=== PATIENT | female | born 1960 | race Caucasian/White ===

== ENCOUNTER → 2016-09-28 | Outpatient (CLI) | payer BC, OTHER ==
--- NOTE | 2016-09-30 09:59 | USB ---
Reason for exam: follow-up at short interval from prior study. History: Patient is postmenopausal. Family history of breast cancer in cousin at age 46. Reductions of both breasts, 2004. Benign core biopsy of the right breast, 2004. Benign excisional biopsy of the right breast, 2002. Physical Findings: Nurse did not find any significant physical abnormalities on exam. US Breast RT Right breast ultrasound includes all four quadrants, the retroareolar region and axilla. Finding demonstrates a 2 x 2 x 3mm oval lesion too small to characterize at 5 o'clock, 3 cm from nipple. This may correspond to the tiny 3mm circumscribed nodule seen on prior mammogram near 4 o'clock. Diagnostic mammogram recommended. These results were verbally communicated with the patient and result sheet given to the patient on 09/28/16. ASSESSMENT: Incomplete: need additional imaging evaluation, BI-RAD 0 RECOMMENDATION: Follow-up diagnostic mammogram of the right breast.
--- NOTE | 2016-09-30 10:01 | MM ---
Reason for exam: additional evaluation requested from abnormal screening. Last mammogram was performed 8 months ago. History: Patient is postmenopausal. Family history of breast cancer in cousin at age 46. Reductions of both breasts, 2004. Benign core biopsy of the right breast, 2003. Benign excisional biopsy of the right breast, 2002. MG 3D Diag Mammo W/Cad RT CC and MLO view(s) were taken of the right breast. Prior study comparison: January 23, 2016, bilateral MG 3d diag mammo w/cad ANNDA. January 23, 2016, left breast US breast LT. June 29, 2012, CAD bilateral diagnostic mammogram. There are scattered fibroglandular densities. Tiny 3mm nodule at 4 o'clock is unchanged from 01/23/16 and may correspond to the ultrasound finding. Stability for 6 months suggests a benign etiology. Additional 6 month follow up recommended. These results were verbally communicated with the patient and result sheet given to the patient on 09/28/16. ASSESSMENT: Probably benign, BI-RAD 3 RECOMMENDATION: Follow-up diagnostic mammogram of both breasts in 6 months. (annual exam left, total 1 year follow up for the right breast) MISSY
== END | disposition home or self-care (01) ==
LOC: RADUSWWP 09:40
PROVIDERS: ATTEND Surgery
DX: R92.8 Other abnormal and inconclusive findings on diagnostic imaging of breast (principal)
CPT/HCPCS: 76641; G0206; G0279

== ENCOUNTER 2017-03-31 07:30 | Inpatient (IN) | payer BC, OTHER ==
[2017-03-31] MEDS: LACTATED RINGERS 1,000 ML IV SCH (07:58)
[2017-03-31 08:18] LABS: Glucose,Whole Blood 157 mg/dL (75-99)
[2017-03-31] MEDS ORDERED: LIDOCAINE 1% INJ 10MG/ML (20 ML MDV) ONE ×2 (09:20→11:55)
[2017-03-31] MEDS ORDERED: PROPOFOL 10 MG/ML 20 ML VIAL IV ONE ×2 (09:20→11:55)
--- NOTE | 2017-03-31 09:37 | P.GSHP ---
History of Present Illness H&P Date: 03/31/17 CHIEF COMPLAINT: Colon screen HISTORY OF PRESENT ILLNESS: The patient is a 56-year-old female who presents for colon screen. Lower endoscopy was offered for further evaluation and management. PAST MEDICAL HISTORY: Please see list. PAST SURGICAL HISTORY: Please see list. MEDICATIONS: Please see list. ALLERGIES: Please see list. SOCIAL HISTORY: No illicit drug use FAMILY HISTORY: No reports of Crohn disease or ulcerative colitis. REVIEW OF ORGAN SYSTEMS: CONSTITUTIONAL: No reports of fevers or chills. PHYSICAL EXAM: VITAL SIGNS: Stable GENERAL: Well-developed pleasant in no acute distress. HEENT: No scleral icterus. Extraocular movements grossly intact. Moist buccal mucosa. NECK: Supple without lymphadenopathy. CHEST: Unlabored respirations. Equal bilateral excursions. CARDIOVASCULAR: Regular rate and rhythm. Distal 2+ pulses. ABDOMEN: Soft, nontender, nondistended. MUSCULOSKELETAL: No clubbing, cyanosis, or edema. ASSESSMENT: 1. Colon screen. PLAN: 1. Recommend proceeding with a lower endoscopy Past Medical History Past Medical History: Diabetes Mellitus, Hyperlipidemia Additional Past Medical History / Comment(s): hx ulcer, has new prescription for oral med for diabetes, History of Any Multi-Drug Resistant Organisms: None Reported Past Surgical History: Bladder Surgery, Breast Surgery, Ear Surgery, Hysterectomy, Tonsillectomy Additional Past Surgical History / Comment(s): rt ear reconstruction, azam breast reduction , rt ankle bone biopsy Past Anesthesia/Blood Transfusion Reactions: No Reported Reaction Smoking Status: Former smoker - Past Family History Father Family Medical History: Cancer, Deep Vein Thrombosis (DVT) Medications and Allergies Home Medications Medication Instructions Recorded Confirmed Type Atorvastatin Calcium [Lipitor] 10 mg PO HS 03/25/17 03/31/17 History Fluticasone Nasal Davis [Flonase 2 spr EA NOSTRIL DAILY 03/25/17 03/31/17 History Nasal Davis] Ibuprofen 200 - 400 mg PO DAILY PRN 03/25/17 03/31/17 History Allergies Allergy/AdvReac Type Severity Reaction Status Date / Time Penicillins Allergy Rash/Hives Verified 03/25/17 11:41 Surgical - Exam Vital Signs Temp Pulse Resp BP Pulse Ox 97.8 F 76 20 117/78 95 03/31/17 07:49 03/31/17 07:49 03/31/17 07:49 03/31/17 07:49 03/31/17 07:49 Results - Labs Abnormal Lab Results - Last 24 Hours (Table) 03/31/17 Range/Units 07:54 POC Glucose (mg/dL) 157 H (75-99) mg/dL
--- NOTE | 2017-03-31 09:42 | P.PCN ---
Date of Procedure: 03/31/17 Description of Procedure: PREOPERATIVE DIAGNOSIS: Colonoscopy screening. Family history of colon cancer. POSTOPERATIVE DIAGNOSIS: Colonoscopy screening. Diverticulosis, scattered. Family history of colon cancer. Colonic perforation, sigmoid colon. OPERATION: Colonoscopy to the sigmoid colon. SURGEON: Ashley Cohn MD. ANESTHESIA: MAC. INDICATIONS: The patient is a 56-year-old female who presents for colonoscopy screening. Benefits and risks were described and informed consent was obtained. DESCRIPTION OF PROCEDURE: The patient had undergone Gatorade, MiraLAX and Dulcolax prep. She had been brought into the operating room and laid in the left lateral decubitus position. After adequate intravenous sedation, the rectum was examined with 2% lidocaine jelly. No external hemorrhoids were encountered. The rectal tone was within normal limits. No lesions were palpated in the rectal vault. An Olympus colonoscope was advanced to a tortuous sigmoid colon. Upon advancement, the small bowel contents was identified consistent intra-abdominal view hence a colonic perforation of a diverticulum at 30 cm from the anal verge. The colonoscope was removed. Withdrawal time was over 6 minutes. FINDINGS: Severe sigmoid diverticulosis. Colonic perforation at 30 cm from the anal verge. RECOMMENDATIONS: Immediate admission for colonic perforation
[2017-03-31] MEDS ORDERED: ONDANSETRON 4 MG/2 ML VIAL IVP PRN (09:43)
[2017-03-31] MEDS ORDERED: METOCLOPRAMIDE 5 MG/ML 2 ML VIAL IVP PRN (09:43)
[2017-03-31] MEDS ORDERED: NALOXONE 0.4 MG/ML 1 ML VIAL IV PRN (09:43)
--- NOTE | 2017-03-31 09:43 | P.PN ---
Progress Note - Text Progress Note Date: 03/31/17 Findings of colonoscopy demonstrates colonic perforation at 30 cm from the anal verge. Patient will be admitted for laparoscopy/laparotomy.
[2017-03-31 09:52] LABS: Glucose,Whole Blood 160 mg/dL (75-99)
[2017-03-31] MEDS: MORPHINE SULFATE 10 MG/ML SYRINGE IVP ONE ×2 (10:23→10:28)
[2017-03-31] MEDS ORDERED: LACTATED RINGERS 1,000 ML IV ONE ×3 (10:28→15:51)
[2017-03-31] MEDS ORDERED: metroNIDAZOLE 500 MG TAB PO SCH ×2 (10:30→18:00)
[2017-03-31] MEDS ORDERED: LEVOFLOXACIN 500MG-D5W PMX 500 MG in DEXTROSE/WATER 1 100ML.BAG IVPB SCH (11:00)
[2017-03-31] MEDS ORDERED: ACETAMINOPHEN IV (For NPO) 1,000 MG in EMPTY BAG 1 BAG IVPB ONE (11:00)
[2017-03-31] MEDS ORDERED: IV FLUID CONTINUATION 1,000 ML IV ONE ×2 (11:09→11:33)
[2017-03-31] MEDS ORDERED: metroNIDAZOLE-NS PMX 500 MG in SALINE 1 100ML.BAG IVPB STA (11:19)
[2017-03-31] MEDS ORDERED: VECURONIUM 10 MG VIAL IV ONE (11:55)
[2017-03-31] MEDS ORDERED: NEOSTIGMINE 1 MG/ML 10 ML VIAL ONE (11:55)
[2017-03-31] MEDS ORDERED: SUCCINYLCHOLINE CHLORIDE 100 MG/5 ML SYR IV ONE (11:55)
[2017-03-31] MEDS ORDERED: fentaNYL (PF) 50 MCG/ML 2 ML AMP ONE (11:55)
[2017-03-31] MEDS ORDERED: GLYCOPYRROLATE 0.2 MG/ML 2 ML VIAL ONE (11:55)
[2017-03-31] MEDS ORDERED: HYDROmorphone (PF) 1 MG/ML ONE (11:55)
[2017-03-31] MEDS ORDERED: MIDAZOLAM 2 MG/2 ML VIAL ONE (11:55)
[2017-03-31] MEDS ORDERED: BUPIVACAINE-EPI 0.5%-1:200,000 10 ML VIAL SQ ONE (12:37)
[2017-03-31] MEDS ORDERED: HYDROmorphone 1 MG/ML 1 ML SYRINGE IVP ONE ×4 (13:45→16:56)
--- NOTE | 2017-03-31 13:49 | P.PCN ---
Date of Procedure: 03/31/17 Preoperative Diagnosis: Diverticulosis, history of perforated diverticulitis following colonoscopy Postoperative Diagnosis: Same Procedure(s) Performed: Diagnostic laparoscopy, oversew of colotomy at 30 cm from anal verge, peritoneal lavage 4 L normal saline, placement of #19 Gavin-Welch drain left lower abdomen, intraoperative colonoscopy for sigmoidoscopy Anesthesia: GETA, local Surgeon: Ashley Cohn Estimated Blood Loss (ml): 5 Pathology: other (Aerobic and anaerobic culture peritoneal fluid) Condition: stable Disposition: floor Operative Findings: Perforated diverticulosis identified and oversewn using epiploica. Area of perforation confirmed at 30 cm from anal verge. Intraoperative colonoscopy for sigmoidoscopy performed demonstrating negative leak test. Placement of drain along the left lower quadrant lateral to area perforation
[2017-03-31] MEDS ORDERED: MEPERIDINE 50 MG/ML SYRINGE IVP ONE (14:10)
[2017-03-31] MEDS ORDERED: ACETAMINOPHEN IV (For NPO) 1,000 MG/100 ML VIAL IVPB ONE (15:13)
[2017-03-31 15:26] LABS: Glucose,Whole Blood 169 mg/dL (75-99)
[2017-03-31 17:44] LABS: HCT 44.7 % (34.0-46.0); HGB 14.9 gm/dL (11.4-16.0); MCH 29.8 pg (25.0-35.0); MCHC 33.4 g/dL (31.0-37.0); MCV 89.3 fL (80.0-100.0); Mean Platelet Volume 7.3; Platelet Count 221 k/uL (150-450); RDW 12.5 % (11.5-15.5); WBC 15.4 k/uL (3.8-10.6)
[2017-03-31] MEDS: D5-0.45% NACL WITH KCL 20MEQ/L 1,000 ML IV SCH (17:49)
[2017-03-31 17:52] LABS: ALT 47 U/L (9-52); AST 28 U/L (14-36); Albumin 3.2 g/dL (3.5-5.0); Alkaline Phosphatase 89 U/L (38-126); Anion Gap 11 mmol/L; Blood Urea Nitrogen 9 mg/dL (7-17); Calcium 8.6 mg/dL (8.4-10.2); Carbon Dioxide 24 mmol/L (22-30); Chloride 103 mmol/L (98-107); Glucose 157 mg/dL (74-99); Potassium 3.5 mmol/L (3.5-5.1); Sodium 138 mmol/L (137-145); Total Bilirubin 1.8 mg/dL (0.2-1.3); Total Protein 5.8 g/dL (6.3-8.2)
[2017-03-31] MEDS ORDERED: SODIUM CHLORIDE 0.9% 1,000 ML IV ONE (19:16)
[2017-03-31 19:43] LABS: Band Neutrophils % 34 %; Lymphocytes # (M) 0.46 k/uL (1.0-4.8); Monocytes # (M) 0.46 k/uL (0-1.0); Neutrophils % (M) 61 %; Nucleated Red Blood Cells 0 /100 WBC (0-0); Total Cells Counted 200
[2017-03-31] MEDS: HYDROmorphone 4 MG/ML 1 ML SYRINGE IVP PRN (19:58)
--- NOTE | 2017-03-31 20:00 | P.OP ---
Date of Procedure: 03/31/17 Description of Procedure: Preoperative Diagnosis: 1. Diverticulosis with previous history of diverticulitis. 2. History of perforated diverticulitis following colonoscopy 3. Family history of colon cancer. 4. Hyperlipidemia. Postoperative Diagnosis: 1. Diverticulosis with previous history of diverticulitis. 2. History of perforated diverticulitis following colonoscopy 3. Family history of colon cancer. 4. Hyperlipidemia. Procedure(s) Performed: 1. Diagnostic laparoscopy, lysis of adhesions 2. Oversew of colotomy at 30 cm from anal verge 3. Peritoneal lavage 4 L normal saline 4. Placement of round #19 Gavin-Welch drain left lower abdomen 5. Intraoperative colonoscopy for sigmoidoscopy Anesthesia: MILADA, local Surgeon: Ashley Cohn Estimated Blood Loss (ml): 5 Pathology: other (Aerobic and anaerobic culture peritoneal fluid) Condition: stable Disposition: floor Operative Findings: 1. Perforated diverticulosis identified and oversewn using epiploica. 2. Area of perforation confirmed at 30 cm from anal verge. 3. Intraoperative colonoscopy for sigmoidoscopy performed demonstrating negative leak test. 4. Placement of drain along the left lower quadrant lateral to area perforation 5. No contamination was identified along the pelvis. 6. Severe sigmoid diverticulosis with moderate redundant colon was identified. INDICATIONS: The patient is a 56-year-old female who presents with perforated diverticulosis following colonoscopy. The patient was completely adamant to avoid a colostomy bag. Surgical intervention with a diagnostic laparoscopy with possible laparotomy including colostomy were described. Benefits and risks of the procedures were discussed. Informed consent was obtained. DESCRIPTION: Patient was brought to the operating room, laid in modified lithotomy position. After general induction, the abdomen was prepped and draped in standard sterile fashion. Prior to incision, a timeout protocol was confirmed with surgical team regarding patient's name including procedure to be performed. Preoperative medications including antibiotics were given. Additionally, bilateral SCDs were placed. A 5 mm laparoscopic trocar entry performed of the left upper quadrant after anesthetizing the skin with local anesthetic. Diagnostic laparoscopy demonstrated no contamination along the lower pelvis. Multiple sigmoid diverticula were encountered. The small bowel was unremarkable. Additional 2 - 5 mm trochars were placed along the right lateral abdominal wall. Bowel graspers were used to investigate the sigmoid colon. Lysis of adhesions was performed to clearly identify the defect. The sigmoid perforation was found at 30 cm from the anal verge. Along the right lateral lower abdominal wall, the 5-mm trochar was exchanged for a 12-mm port. Using an Endo Stitch and 2-0 silk, the colonic perforation was oversewn using the epiploica as a Jeff patch to the left lateral abdominal wall. Severe diverticulitis was also encountered as it involved the left fallopian tube. The repair was emergent and normal saline solution. An Olympus colonoscope was advanced to the sigmoid colon. Multiple [place] diverticuli were identified . With a combined view of the laparoscope, moderate sigmoid redundancy was identified. No leak was identified upon insufflation of the sigmoid colon. The scope was withdrawn. I re-scrubbed into the case. Abdominal cavity was copiously irrigated with warm saline solution 4 L. the aspirant of peritoneal fluid was sent for aerobic and anaerobic culture. Gavin-Welch drain was placed along the left lower quadrant at the area of repair. Drain stitch of 2-0 nylon was placed. As the drain exited via the right lower quadrant port. At least 3-1/2 L of irrigation fluid was aspirated from the abdominal cavity. Final inspection of the abdomen demonstrated adequate hemostasis including no enterotomies. All instruments and pneumoperitoneum were evacuated from the abdominal cavity. Local anesthetic was infiltrated in all wounds for postop analgesia. Dermabond was applied to the skin after reapproximating the incisions with 4-0 Monocryl as described. At the end of the procedure, needle, sponge, and instrument count was verified correct by surgical aide. The patient had tolerated the procedure well, was taken to the postanesthesia care unit in stable condition. Intraoperative abdominal films were described and discussed with the patient's family who were overall pleased with the level of care. Postprocedure, the patient reported that her abdominal pain has moderately improved following surgery. All questions including surgical care plan was described to the patient and her family.
--- NOTE | 2017-03-31 20:04 | P.PN ---
Subjective Progress Note Date: 03/31/17 The patient is status post diagnostic laparoscopy with abdominal washout and placement of FREIDA drain. She reports her abdominal pain has moderately improved. Her and her mother is at bedside. On further discussion, her mother and confirms that she's had long-standing lower abdominal pain secondary to diverticulitis. Diverticulitis also runs in her family. CT of the abdomen and pelvis images as referred from 2016 showed severe tortuosity of the sigmoid colon secondary to severe diverticulitis. Clinically, patient reports improvement of her symptoms. Objective - Vital Signs Vital signs: Vital Signs Temp 99.0 F 03/31/17 16:15 Pulse 112 H 03/31/17 16:30 Resp 16 03/31/17 16:30 BP 108/61 03/31/17 16:30 Pulse Ox 98 03/31/17 16:30 Intake & Output 03/31/17 03/31/17 04/01/17 06:59 18:59 06:59 Intake Total 3500 Output Total 202 Balance 3298 Weight 72.5 kg Intake: IV 3500 Output: Urine 200 Estimated Blood Loss 2 - Exam GENERAL: Well developed and in no acute distress. Pleasant. HEENT: No sclera icterus. Extraocular movements grossly intact. Moist buccal mucosa. Head is atraumatic, normocephalic. Hears conversational speech. No nasal drainage. NECK: Supple without lymphadenopathy. No JV distention. CHEST: Non-labored respirations and equal bilateral excursions. CARDIOVASCULAR: Tachycardic. Palpable 2+ radial pulses. ABDOMEN: Soft. No peritonitis. FREIDA serosanguineous. Minimal left lower quadrant tenderness. MUSCULOSKELETAL: No clubbing, cyanosis or edema. NEUROLOGIC: No focal or lateralizing signs. PSYCH: Appropriate affect. Alert and oriented to person, place and time. SKIN: Good skin turgor. Well perfused. - Labs CBC & Chem 7: 03/31/17 17:24 03/31/17 17:24 Labs: Abnormal Lab Results - Last 24 Hours (Table) 03/31/17 03/31/17 03/31/17 Range/Units 07:54 09:50 15:21 WBC (3.8-10.6) k/uL Neutrophils # (Manual) (1.3-7.7) k/uL Lymphocytes # (Manual) (1.0-4.8) k/uL Glucose (74-99) mg/dL POC Glucose (mg/dL) 157 H 160 H 169 H (75-99) mg/dL Plasma Lactic Acid Celio (0.7-2.0) mmol/L Total Bilirubin (0.2-1.3) mg/dL Total Protein (6.3-8.2) g/dL Albumin (3.5-5.0) g/dL 03/31/17 03/31/17 03/31/17 Range/Units 17:24 17:24 17:24 WBC 15.4 H (3.8-10.6) k/uL Neutrophils # (Manual) 14.60 H (1.3-7.7) k/uL Lymphocytes # (Manual) 0.46 L (1.0-4.8) k/uL Glucose 157 H (74-99) mg/dL POC Glucose (mg/dL) (75-99) mg/dL Plasma Lactic Acid Celio 3.5 H* (0.7-2.0) mmol/L Total Bilirubin 1.8 H (0.2-1.3) mg/dL Total Protein 5.8 L (6.3-8.2) g/dL Albumin 3.2 L (3.5-5.0) g/dL Assessment and Plan (1) Diverticulosis Current Visit: Yes Status: Acute Code(s): K57.90 - DVRTCLOS OF INTEST, PART UNSP, W/O PERF OR ABSCESS W/O BLEED SNOMED Code(s): 60584082 (2) Perforation of sigmoid colon Current Visit: Yes Status: Acute Code(s): K63.1 - PERFORATION OF INTESTINE ( NONTRAUMATIC) SNOMED Code(s): 040531387 Plan: 1. Continue IV antibiotics including levofloxacin and Flagyl as described. She 'll be discharged home with levofloxacin and Flagyl. 2. May have ice chips and popsicles. No advancement of diet for at least 24 hours. 3. For her tachycardia, IV fluid hydration. Additionally start of metoprolol. 4. She and family understands that should her clinical course worsen, then she will need a formal exploratory laparotomy and possible colostomy. 5. She will be discharged home with Gavin-Welch drain to be removed in the office in one week. 6. Full inpatient hospitalization anticipated more than 2 nights. Time with Patient: Greater than 30
[2017-03-31] MEDS ORDERED: FAMOTIDINE 20 MG TAB PO SCH (21:00)
[2017-03-31] MEDS: MAGNESIUM SULFATE-D5W PMX 1 GM in DEXTROSE/WATER 1 100ML.BAG IVPB SCH (21:54)
[2017-03-31] MEDS: ATORVASTATIN 10 MG TAB PO SCH (22:46)
[2017-03-31] MEDS: metroNIDAZOLE 500 MG TAB PO SCH (22:46)
[2017-03-31] MEDS: METOPROLOL TARTRATE 25 MG TAB PO SCH (22:47)
[2017-04-01] MEDS: HYDROmorphone 4 MG/ML 1 ML SYRINGE IVP PRN ×2 (02:29→09:07)
[2017-04-01] MEDS: MAGNESIUM SULFATE-D5W PMX 1 GM in DEXTROSE/WATER 1 100ML.BAG IVPB SCH (02:33)
[2017-04-01] MEDS: D5-0.45% NACL WITH KCL 20MEQ/L 1,000 ML IV SCH ×5 (06:19→22:18)
[2017-04-01 07:15] LABS: Basophils % (A) 0 %; Eosinophils % (A) 0 %; HCT 42.1 % (34.0-46.0); HGB 13.8 gm/dL (11.4-16.0); Lymphocytes # (A) 1.3 k/uL (1.0-4.8); Lymphocytes % (A) 6 %; MCH 29.6 pg (25.0-35.0); MCHC 32.7 g/dL (31.0-37.0); MCV 90.5 fL (80.0-100.0); Mean Platelet Volume 7.4; Monocytes # (A) 0.5 k/uL (0-1.0); Monocytes % (A) 3 %; Neutrophils # (A) 19.1 k/uL (1.3-7.7); Neutrophils % (A) 90 %; Platelet Count 230 k/uL (150-450); RBC 4.65 m/uL (3.80-5.40); RDW 12.7 % (11.5-15.5); WBC 21.2 k/uL (3.8-10.6)
[2017-04-01 07:24] LABS: ALT 41 U/L (9-52); AST 24 U/L (14-36); Albumin 3.1 g/dL (3.5-5.0); Alkaline Phosphatase 86 U/L (38-126); Anion Gap 8 mmol/L; Blood Urea Nitrogen 7 mg/dL (7-17); Calcium 8.8 mg/dL (8.4-10.2); Carbon Dioxide 27 mmol/L (22-30); Chloride 102 mmol/L (98-107); Glucose 162 mg/dL (74-99); Magnesium 2.1 mg/dL (1.6-2.3); Phosphorus 3.2 mg/dL (2.5-4.5); Potassium 4.6 mmol/L (3.5-5.1); Sodium 137 mmol/L (137-145); Total Bilirubin 1.5 mg/dL (0.2-1.3); Total Protein 5.6 g/dL (6.3-8.2)
[2017-04-01] MEDS: LACTATED RINGERS 1,000 ML IV SCH (08:52)
[2017-04-01] MEDS: METOPROLOL TARTRATE 25 MG TAB PO SCH ×2 (09:06→22:25)
[2017-04-01] MEDS: metroNIDAZOLE 500 MG TAB PO SCH ×3 (09:06→22:25)
[2017-04-01] MEDS: PANTOPRAZOLE 40 MG/10 ML VIAL IV SCH (09:06)
[2017-04-01] MEDS: ENOXAPARIN 30 MG/0.3 ML SYRINGE SQ SCH (09:06)
[2017-04-01] MEDS: FLUTICASONE 50MCG/SPRAY NASAL 16GM EA NOSTRIL SCH (09:08)
--- NOTE | 2017-04-01 10:59 | CDI ---
Last Revision, February 2017 Documentation Clarification Form Date: 04/01/2017 10:18:00 AM From: Daniela Rocha RN, CCDS Admit Date: 03/31/2017 9:44:00 AM Patient Name: Paulette Myrick Visit Number: [id number] Discharge Date: ATTENTION: The Clinical Documentation Specialists (CDI) and [facility] Coding Staff appreciate your assistance in clarifying documentation. Please respond to the clarification below the line at the bottom and electronically sign. The CDI & [facility] Coding staff will review the response and follow-up if needed. Please note: Queries are made part of the Legal Health Record. If you have any questions, please contact the author of this message via ITS. Dr. Ashley Cohn Perforation of sigmoid colon following colonoscopy is documented in the procedure and progress notes. Patients Admitting Diagnosis: History of perforated diverticulitis following colonoscopy Post-Operative Diagnosis: Same Procedure performed: Diagnostic laparoscopy, lysis of adhesions, oversew of colostomy at 30 cm from anal verge, peritoneal lavage, placement of Gavin- Welch drain left lower abdomen, Intraoperative colonoscopy for sigmoidoscopy History/Risk Factors: Diverticulosis with previous history of diverticulitis, Hyperlipidemia Clinical Indicators: Colonoscopy screening with colonoscope advanced to a tortuous sigmoid colon. Upon advancement the small bowel contents was identified consistent intra-abdominal view hence a colonic perforation of a diverticulum at 30 cm from the anal verge. Treatment: Levaquin IV Dilaudid IVP PRN Flagyl PO IV Fluids In order to accurately reflect this patients severity of illness, please clarify if the post-operative diagnosis is: An expected post-procedural or post-surgical condition; Integral to the procedure; Inherent to the procedure; An unexpected post-procedural or post-surgical condition related to surgical care or other medical conditions, specify; Other, please specify Unable to determine Please continue to document in your progress notes and discharge summary in order to capture severity of illness and risk of mortality. Include clinical findings that support your diagnosis. MTDD
[2017-04-01] MEDS: LEVOFLOXACIN 750MG-D5W PMX 750 MG in DEXTROSE/WATER 1 150ML.BAG IVPB SCH (12:09)
[2017-04-01] MEDS ORDERED: HYDROmorphone 1 MG/ML 1 ML SYRINGE IVP PRN (13:19)
--- NOTE | 2017-04-01 13:33 | P.PN ---
<Berna Clarkemary Lorenzo - Last Filed: 04/01/17 13:16> Subjective Progress Note Date: 04/01/17 56-year-old female seen and examined sitting up in a chair. Patient did ambulate in the hallway short distance this morning Patient reports having a dizziness lightheadedness nausea sensation after receiving iv dilaudid for pain. Patient states is belching but not passing gas rectally. Reports thirsty and hungry Did note the patient did ambulate in the hallway heart monitor showed the heart rate in the 80s with activity. Since starting the beta akhil Lopressor 25 twice a day heart rate has been in the 80s. Patient is asymptomatic. Denying chest pain denying a sensation of heart palpitations Temp 98 0.2 this morning white count is up to 21.2 electrolytes reviewed lab within normal limits patient is postop March 31 diagnostic laparoscopic lysis of adhesions placement left lower quadrant FREIDA drain intraoperative colonoscopy for sigmoidoscopy Objective - Vital Signs Vital signs: Vital Signs Temp 98.2 F 04/01/17 09:27 Pulse 103 H 04/01/17 09:27 Resp 16 04/01/17 09:27 BP 93/51 04/01/17 09:27 Pulse Ox 90 L 04/01/17 09:27 Intake & Output 03/31/17 04/01/17 04/01/17 18:59 06:59 18:59 Intake Total 3500 2300 Output Total 202 640 Balance 3298 1660 Weight 72.5 kg 75.5 kg Intake: IV 3500 Intake, IV Titration 2300 Amount D5-0.45% NaCl with KCl 1100 20Meq/l 1,000 ml @ 100 mls/hr IV .Q10H [facility] Rx#: [id number] Magnesium Sulfate-D5w Pmx 200 1 gm In Dextrose/Water 1 100ml.bag @ 100 mls/hr IVPB Q1H [facility] Rx#: [id number] Sodium Chloride 0.9% 1, 1000 000 ml @ 999 mls/hr IV . Q1H1M [facility] Rx#:[id number] Output: Drainage 40 Right Lower Abdomen 40 Urine 200 600 Estimated Blood Loss 2 Other: # Voids 1 2 - Exam Physical exam 56 year old female sitting up in a chair pleasant cooperative oriented 3 Lungs essentially clear adequate air movement on room air able to use IS achieve thousand Heart S1-S2 audible regular monitor current sinus heart rate in the 80s Abdomen FREIDA drain left lower quadrant serous drainage noted few hypoactive bowel tones surgical dressings dry non-distended belching but not passing gas rectally no stool urinating no difficulty nausea sensation no active emesis Extremities Venodyne's on to the bilateral lower extremities - Labs CBC & Chem 7: 04/01/17 06:39 04/01/17 06:39 Labs: Abnormal Lab Results - Last 24 Hours (Table) 03/31/17 03/31/17 03/31/17 Range/Units 15:21 17:24 17:24 WBC 15.4 H (3.8-10.6) k/uL Neutrophils # (1.3-7.7) k/uL Neutrophils # (Manual) 14.60 H (1.3-7.7) k/uL Lymphocytes # (Manual) 0.46 L (1.0-4.8) k/uL Glucose 157 H (74-99) mg/dL POC Glucose (mg/dL) 169 H (75-99) mg/dL Plasma Lactic Acid Celio (0.7-2.0) mmol/L Total Bilirubin 1.8 H (0.2-1.3) mg/dL Total Protein 5.8 L (6.3-8.2) g/dL Albumin 3.2 L (3.5-5.0) g/dL 03/31/17 03/31/17 04/01/17 Range/Units 17:24 21:10 06:39 WBC 21.2 H (3.8-10.6) k/uL Neutrophils # 19.1 H (1.3-7.7) k/uL Neutrophils # (Manual) (1.3-7.7) k/uL Lymphocytes # (Manual) (1.0-4.8) k/uL Glucose (74-99) mg/dL POC Glucose (mg/dL) (75-99) mg/dL Plasma Lactic Acid Celio 3.5 H* 2.5 H* (0.7-2.0) mmol/L Total Bilirubin (0.2-1.3) mg/dL Total Protein (6.3-8.2) g/dL Albumin (3.5-5.0) g/dL 04/01/17 Range/Units 06:39 WBC (3.8-10.6) k/uL Neutrophils # (1.3-7.7) k/uL Neutrophils # (Manual) (1.3-7.7) k/uL Lymphocytes # (Manual) (1.0-4.8) k/uL Glucose 162 H (74-99) mg/dL POC Glucose (mg/dL) (75-99) mg/dL Plasma Lactic Acid Celio (0.7-2.0) mmol/L Total Bilirubin 1.5 H (0.2-1.3) mg/dL Total Protein 5.6 L (6.3-8.2) g/dL Albumin 3.1 L (3.5-5.0) g/dL Assessment and Plan Assessment: Impression History of diverticulosis History of perforated diverticulitis following colonoscopy Status post March 31 diagnostic laparoscopic be oversew of colotomy, placement FREIDA drain left lower quadrant, interoperative colonoscopy for sigmoidoscopy Family history of colon cancer Hyperlipidemia Severe sigmoid diverticulosis with moderate redundant colon was identified. Postop leukocytosis likely reactive Plan Continue postop surgical care Transfer to surgical unit with remote cardiac telemetry Continue Lopressor 25 twice a day monitor the response Pain control Increase activity DVT and GI prophylaxis Repeat labs in the morning IV fluid for hydration Continue nothing by mouth except ice chips and popsicles Further recommendations pending dr james tena on behalf of Dr. Cohn The above impression and plan of care have been discussed and directed by signing physician. Elinor Clarke nurse practitioner acting as scribe for signing physician. <Ashley Cohn N - Last Filed: 04/02/17 17:58> Objective - Vital Signs Vital signs: Vital Signs Temp 98.0 F 04/02/17 15:23 Pulse 80 04/02/17 15:23 Resp 16 04/02/17 15:23 BP 131/83 04/02/17 15:23 Pulse Ox 95 04/02/17 15:23 Intake & Output 04/01/17 04/02/17 04/02/17 18:59 06:59 18:59 Intake Total 1000 2000 Output Total 50 100 40 Balance -50 900 1960 Weight 75.5 kg 79.5 kg Intake: IV 2000 D5-0.45% NaCl with KCl 2000 20Meq/l 1,000 ml @ 125 mls/hr IV .Q8H [facility] Rx#: [id number] Intake, IV Titration 1000 Amount D5-0.45% NaCl with KCl 1000 20Meq/l 1,000 ml @ 125 mls/hr IV .Q8H [facility] Rx#: [id number] Output: Drainage 50 40 Right Lower Abdomen 50 40 Urine 100 Other: Voiding Method Toilet # Voids 2 3 2 # Bowel Movements 1 - Labs CBC & Chem 7: 04/02/17 06:26 04/02/17 06:26 Labs: Abnormal Lab Results - Last 24 Hours (Table) 04/01/17 04/02/17 04/02/17 Range/Units 23:38 05:44 06:26 WBC 15.3 H (3.8-10.6) k/uL Neutrophils # 13.6 H (1.3-7.7) k/uL Glucose (74-99) mg/dL POC Glucose (mg/dL) 171 H 179 H (75-99) mg/dL 04/02/17 04/02/17 Range/Units 06:26 07:19 WBC (3.8-10.6) k/uL Neutrophils # (1.3-7.7) k/uL Glucose 185 H (74-99) mg/dL POC Glucose (mg/dL) 182 H (75-99) mg/dL Microbiology - Last 24 Hours (Table) 04/01/17 21:10 Urine Culture - Preliminary Urine,Clean Catch - Imaging and Cardiology CT scan - abdomen: report reviewed, image reviewed (Images were reviewed with the patient and her demonstrated fluid collection above the bladder. Separately, sealed perforation along the descending colon confirmed.) CT scan - pelvis: report reviewed, image reviewed Assessment and Plan (1) Diverticulosis Current Visit: Yes Status: Acute Code(s): K57.90 - DVRTCLOS OF INTEST, PART UNSP, W/O PERF OR ABSCESS W/O BLEED SNOMED Code(s): 26825983 (2) Perforation of sigmoid colon Current Visit: Yes Status: Acute Code(s): K63.1 - PERFORATION OF INTESTINE ( NONTRAUMATIC) SNOMED Code(s): 050020055 Plan: 1. At the time of my evaluation this afternoon, the patient is passing moderate amount of flatus and is having bowel movements. I have started her on regular diet. 2. A Franco catheter was placed as her computed tomography scan showed a moderately distended bladder. Will discontinue Franco in the morning. 3. Discharge medications include ciprofloxacin, Flagyl, or hydrocodone was sent to the pharmacy. Patient will be discharged home with antibiotics for one to 2 weeks. 4. Patient will go home with FREIDA drain. She demonstrated understanding of its use. 5. Incentive spirometer use also advised. 6. Potential discharge home pending improvement of white blood cell count and patient able to urinate on her own without Franco catheter. Overall patient demonstrated understanding of the care plan and was agreeable with care.
[2017-04-01] MEDS: METOCLOPRAMIDE 5 MG/ML 2 ML VIAL IVP SCH ×3 (15:01→23:44)
[2017-04-01] MEDS ORDERED: AMPICILLIN-SULBACTAM 3 GM in SODIUM CHLORIDE 0.9% 100 ML IVPB SCH (15:29)
[2017-04-01] MEDS ORDERED: ONDANSETRON 4 MG/2 ML VIAL IVP PRN (15:31)
[2017-04-01] MEDS: SCOPOLAMINE 1.5MG/72HR PATCH TRANSDERM SCH (16:40)
[2017-04-01] MEDS: CLINDAMYCIN 600 MG in DEXTROSE 5% IN WATER 50 ML IVPB SCH ×4 (16:40→23:45)
[2017-04-01 17:10] LABS: Glucose,Whole Blood 215 mg/dL (75-99)
[2017-04-01] MEDS: HYDROcodone/APAP 7.5-325MG 1 EACH TAB PO PRN ×2 (19:33→23:44)
[2017-04-01] MEDS: ATORVASTATIN 10 MG TAB PO SCH (22:25)
[2017-04-01 23:43] LABS: Glucose,Whole Blood 171 mg/dL (75-99)
[2017-04-02] MEDS: HYDROcodone/APAP 7.5-325MG 1 EACH TAB PO PRN ×4 (03:59→19:18)
[2017-04-02] MEDS: LACTATED RINGERS 1,000 ML IV SCH (04:27)
[2017-04-02] MEDS: D5-0.45% NACL WITH KCL 20MEQ/L 1,000 ML IV SCH ×3 (04:27→19:22)
[2017-04-02] MEDS: METOCLOPRAMIDE 5 MG/ML 2 ML VIAL IVP SCH ×4 (05:26→23:09)
[2017-04-02 05:55] LABS: Glucose,Whole Blood 179 mg/dL (75-99)
[2017-04-02 07:07] LABS: Basophils % (A) 0 %; Eosinophils % (A) 0 %; HGB 12.2 gm/dL (11.4-16.0); Lymphocytes # (A) 1.1 k/uL (1.0-4.8); Lymphocytes % (A) 7 %; MCH 29.7 pg (25.0-35.0); MCHC 32.9 g/dL (31.0-37.0); MCV 90.4 fL (80.0-100.0); Mean Platelet Volume 7.3; Monocytes # (A) 0.4 k/uL (0-1.0); Monocytes % (A) 3 %; Neutrophils # (A) 13.6 k/uL (1.3-7.7); Neutrophils % (A) 89 %; Platelet Count 185 k/uL (150-450); RBC 4.09 m/uL (3.80-5.40); RDW 12.7 % (11.5-15.5); WBC 15.3 k/uL (3.8-10.6)
[2017-04-02 07:22] LABS: Anion Gap 8 mmol/L; Blood Urea Nitrogen 8 mg/dL (7-17); Calcium 8.7 mg/dL (8.4-10.2); Carbon Dioxide 23 mmol/L (22-30); Chloride 106 mmol/L (98-107); Glucose 185 mg/dL (74-99); Potassium 4.2 mmol/L (3.5-5.1); Sodium 137 mmol/L (137-145)
[2017-04-02 07:58] LABS: Glucose,Whole Blood 182 mg/dL (75-99)
--- NOTE | 2017-04-02 08:01 | P.PN ---
Subjective Progress Note Date: 04/02/17 The patient is status post diagnostic laparoscopy with abdominal washout and placement of FREIDA drain. She reports moderate resolution of her abdominal pain. Separately she reports increased urinary frequency. She has history of severe diverticulitis. Clinically she is improving. Her pain is controlled. No reports of fevers or chills. She has not passed flatus. She denies abdominal bloat. Objective - Vital Signs Vital signs: Vital Signs Temp 98.2 F 04/02/17 07:18 Pulse 85 04/02/17 07:18 Resp 16 04/02/17 07:18 BP 123/76 04/02/17 07:18 Pulse Ox 97 04/02/17 07:18 Intake & Output 04/01/17 04/02/17 04/02/17 18:59 06:59 18:59 Intake Total 1000 Output Total 50 100 Balance -50 900 Weight 75.5 kg 79.5 kg Intake: Intake, IV Titration 1000 Amount D5-0.45% NaCl with KCl 1000 20Meq/l 1,000 ml @ 125 mls/hr IV .Q8H [facility] Rx#: [id number] Output: Drainage 50 Right Lower Abdomen 50 Urine 100 Other: # Voids 2 3 - Exam GENERAL: Well developed and in no acute distress. Pleasant. HEENT: No sclera icterus. Extraocular movements grossly intact. Moist buccal mucosa. Head is atraumatic, normocephalic. Hears conversational speech. No nasal drainage. NECK: Supple without lymphadenopathy. No JV distention. CHEST: Non-labored respirations and equal bilateral excursions. CARDIOVASCULAR: Tachycardic. Palpable 2+ radial pulses. ABDOMEN: Soft. No peritonitis. FREIDA color more cloudy and sanguinous. MUSCULOSKELETAL: No clubbing, cyanosis or edema. NEUROLOGIC: No focal or lateralizing signs. PSYCH: Appropriate affect. Alert and oriented to person, place and time. SKIN: Good skin turgor. Well perfused. - Labs CBC & Chem 7: 04/02/17 06:26 04/02/17 06:26 Labs: Abnormal Lab Results - Last 24 Hours (Table) 04/01/17 04/01/17 04/02/17 Range/Units 17:07 23:38 05:44 WBC (3.8-10.6) k/uL Neutrophils # (1.3-7.7) k/uL Glucose (74-99) mg/dL POC Glucose (mg/dL) 215 H 171 H 179 H (75-99) mg/dL 04/02/17 04/02/17 04/02/17 Range/Units 06:26 06:26 07:19 WBC 15.3 H (3.8-10.6) k/uL Neutrophils # 13.6 H (1.3-7.7) k/uL Glucose 185 H (74-99) mg/dL POC Glucose (mg/dL) 182 H (75-99) mg/dL Microbiology - Last 24 Hours (Table) 04/01/17 21:10 Urine Culture - Preliminary Urine,Clean Catch Assessment and Plan (1) Diverticulosis Current Visit: Yes Status: Acute Code(s): K57.90 - DVRTCLOS OF INTEST, PART UNSP, W/O PERF OR ABSCESS W/O BLEED SNOMED Code(s): 97130446 (2) Perforation of sigmoid colon Current Visit: Yes Status: Acute Code(s): K63.1 - PERFORATION OF INTESTINE ( NONTRAUMATIC) SNOMED Code(s): 966401703 Plan: 1. I did discuss should conservative management failed, open exploratory laparotomy and colostomy may be performed. 2. Recommend CT of the abdomen and pelvis as her last scan was 2015. 3. Continue IV antibiotics. We'll adjust antibiotics pending growth from peritoneal fluid.
[2017-04-02] MEDS: METOPROLOL TARTRATE 25 MG TAB PO SCH ×2 (08:32→21:32)
[2017-04-02] MEDS: metroNIDAZOLE 500 MG TAB PO SCH (08:32)
[2017-04-02] MEDS: ENOXAPARIN 30 MG/0.3 ML SYRINGE SQ SCH (08:32)
[2017-04-02] MEDS: PANTOPRAZOLE 40 MG/10 ML VIAL IV SCH (08:33)
[2017-04-02] MEDS: CLINDAMYCIN 600 MG in DEXTROSE 5% IN WATER 50 ML IVPB SCH ×8 (08:33→23:09)
[2017-04-02] MEDS ORDERED: HYDROmorphone 2 MG/ML 1 ML SYRINGE IVP PRN (08:49)
[2017-04-02] MEDS: FLUTICASONE 50MCG/SPRAY NASAL 16GM EA NOSTRIL SCH (09:24)
[2017-04-02] MEDS: LEVOFLOXACIN 750MG-D5W PMX 750 MG in DEXTROSE/WATER 1 150ML.BAG IVPB SCH (11:26)
[2017-04-02] MEDS ORDERED: RX INFO: IV CONTRAST WAS GIVEN 1 EACH MISC MISCELLANE PRN (11:44)
--- NOTE | 2017-04-02 14:02 | CT ---
EXAMINATION TYPE: CT abdomen pelvis w con DATE OF EXAM: 04/02/2017 HISTORY: Post OP colon repair. Rule out diverticulitis per order. CT DLP: 1731mGycm Automated Exposure Control for Dose Reduction was Utilized. CONTRAST: CT scan of the abdomen and pelvis is performed without oral but with IV Contrast, patient injected wi th 100 mL of Omnipaque 300. COMPARISON: CT abdomen and pelvis February 03, 2016 FINDINGS: LUNG BASES: There is new wedge-shaped atelectasis and/or consolidation posteriorly in both lung bases . LIVER/GB: There is roughly 1 cm gallstone dependently in gallbladder axial image 31. No gallbladder s urrounding inflammatory changes present. PANCREAS: No significant abnormality is seen. SPLEEN: No significant abnormality is seen. ADRENALS: No significant abnormality is seen. KIDNEYS: There is 4 mm calculus upper pole level left kidney coronal image 62 redemonstrated. Nondepe ndent air in bladder is presumed product of Franco catheterization at time of recent surgery. BOWEL: Stomach is not suspiciously dilated. There is small 1.7 cm diverticulum near junction of secon d and third portion duodenum on coronal image 49. Duodenum is not suspiciously dilated. There are air-fluid levels in slightly prominent fluid-filled small bowel loops throughout the abdome n. Normal-appearing appendix is seen from cecum right lower quadrant. Fluid is noted in nondistended right colon. There is gas slightly prominent transverse colon. There is poorly distended left-sided c olon including at level of splenic flexure. There are diverticula in the sigmoid colon. There is some ill-defined surrounding ill-defined fluid and fat stranding. In the pelvis there is a thin-walled fluid collection with some bubbles of nondepe ndent air suspicious for developing abscess measuring roughly 6.0 x 4.0 cm axial image 75. Craniocaud al dimension is roughly 5 cm coronal image 63. UTERUS/ADNEXA: Uterus is surgically absent or atrophic in appearance. There is unusual hyperdense are a in the region of left ovarian veins left of bladder axial image 69 and 70, suspect some reactive in flammatory change related to diverticulitis in region of remnant left ovary. Some blood product at th is level cannot be excluded. LYMPH NODES: No greater than 1cm abdominal or pelvic lymph nodes are appreciated. OSSEOUS STRUCTURES: Moderate to severe joint space loss in both hips is present. There is facet arthr opathy lower lumbar levels. OTHER: There is subcutaneous air from recent surgery in the anterior abdominal wall. There is right-s ided percutaneous drainage catheter terminating in the left upper to mid abdomen anteriorly. There is mild calcified atherosclerotic change of the right common iliac artery. IMPRESSION: 1. New fairly moderate acute diverticulitis proximal to mid sigmoid colon. There is fairly moderate s ize pelvic thin-walled fluid collection felt to reflect developing abscess. Due to location it is pro bably difficult to access for percutaneous drainage. There is overall nonspecific bowel gas pattern b ut favor postoperative ileus. No significant fluid near tip of drainage catheter. Uncertain what rece nt bowel surgery was?
[2017-04-02] MEDS: metroNIDAZOLE-NS PMX 500 MG in SALINE 1 100ML.BAG IVPB SCH ×2 (16:35→23:57)
[2017-04-02] MEDS: ATORVASTATIN 10 MG TAB PO SCH (21:32)
[2017-04-03] MEDS: LACTATED RINGERS 1,000 ML IV SCH (05:17)
[2017-04-03] MEDS: D5-0.45% NACL WITH KCL 20MEQ/L 1,000 ML IV SCH ×2 (05:17→16:14)
[2017-04-03] MEDS: METOCLOPRAMIDE 5 MG/ML 2 ML VIAL IVP SCH ×3 (05:40→17:48)
[2017-04-03] MEDS: HYDROcodone/APAP 7.5-325MG 1 EACH TAB PO PRN ×4 (05:44→22:14)
[2017-04-03 07:48] LABS: Basophils % (A) 0 %; Eosinophils # (A) 0.1 k/uL (0-0.7); Eosinophils % (A) 1 %; HCT 37.7 % (34.0-46.0); HGB 12.8 gm/dL (11.4-16.0); Lymphocytes # (A) 1.3 k/uL (1.0-4.8); Lymphocytes % (A) 8 %; MCH 30.7 pg (25.0-35.0); MCHC 33.8 g/dL (31.0-37.0); MCV 90.7 fL (80.0-100.0); Mean Platelet Volume 7.6; Monocytes # (A) 0.5 k/uL (0-1.0); Monocytes % (A) 3 %; Neutrophils # (A) 13.6 k/uL (1.3-7.7); Neutrophils % (A) 87 %; Platelet Count 198 k/uL (150-450); RBC 4.15 m/uL (3.80-5.40); RDW 12.7 % (11.5-15.5); WBC 15.7 k/uL (3.8-10.6)
[2017-04-03 08:10] LABS: Anion Gap 9 mmol/L; Blood Urea Nitrogen 8 mg/dL (7-17); Calcium 9.1 mg/dL (8.4-10.2); Carbon Dioxide 24 mmol/L (22-30); Chloride 104 mmol/L (98-107); Glucose 209 mg/dL (74-99); Potassium 4.6 mmol/L (3.5-5.1); Sodium 137 mmol/L (137-145)
[2017-04-03] MEDS: FLUTICASONE 50MCG/SPRAY NASAL 16GM EA NOSTRIL SCH (08:16)
[2017-04-03] MEDS: PANTOPRAZOLE 40 MG/10 ML VIAL IV SCH (08:17)
[2017-04-03] MEDS: METOPROLOL TARTRATE 25 MG TAB PO SCH ×3 (08:17→22:52)
[2017-04-03] MEDS: ENOXAPARIN 40 MG/0.4 ML SYRINGE SQ SCH (08:17)
[2017-04-03] MEDS: CLINDAMYCIN 600 MG in DEXTROSE 5% IN WATER 50 ML IVPB SCH ×2 (08:17)
[2017-04-03] MEDS: metroNIDAZOLE-NS PMX 500 MG in SALINE 1 100ML.BAG IVPB SCH ×2 (10:07→17:54)
--- NOTE | 2017-04-03 11:09 | P.PN ---
Subjective Progress Note Date: 04/03/17 Principal diagnosis: Colonic perforation with colonoscopy The patient feels well. She wants to go home today. She denies a significant pain. Objective - Vital Signs Vital signs: Vital Signs Temp 98.3 F 04/03/17 07:19 Pulse 87 04/03/17 07:19 Resp 16 04/03/17 07:19 BP 133/82 04/03/17 07:19 Pulse Ox 91 L 04/03/17 07:19 Intake & Output 04/02/17 04/03/17 04/03/17 18:59 06:59 18:59 Intake Total 2000 3000 120 Output Total 40 2235 900 Balance 1960 765 -780 Intake: IV 2000 3000 D5-0.45% NaCl with KCl 2000 3000 20Meq/l 1,000 ml @ 125 mls/hr IV .Q8H [facility] Rx#: [id number] Oral 120 Output: Drainage 40 35 Right Lower Abdomen 40 35 Urine 2200 900 Uretheral (Franco) 900 900 Other: Voiding Method Toilet # Voids 2 3 2 # Bowel Movements 1 2 - Constitutional General appearance: Present: cooperative - Gastrointestinal Gastrointestinal Comment(s): Abdomen soft. Incision sites are clean dry intact. - Labs CBC & Chem 7: 04/03/17 07:09 04/03/17 07:09 Labs: Abnormal Lab Results - Last 24 Hours (Table) 04/03/17 04/03/17 Range/Units 07:09 07:09 WBC 15.7 H (3.8-10.6) k/uL Neutrophils # 13.6 H (1.3-7.7) k/uL Glucose 209 H (74-99) mg/dL Microbiology - Last 24 Hours (Table) 04/03/17 05:00 Body Fluid Culture - Preliminary Aspirate 04/01/17 21:10 Urine Culture - Final Urine,Clean Catch Assessment and Plan Assessment: Status post repair of colonic perforation after colonoscopy. The patient wished to go home. A computed tomography scan of the abdomen pelvis was ordered yesterday. She is found have a small fluid collection in the pelvis. It is unclear this related to seroma or developing abscess. Patient clinically looks well. Dr. Lake has been consult to see her. If she is cleared by Dr. Ruiz she will be discharged home today. She will follow-up Dr. Omalley next week.
[2017-04-03] MEDS: LEVOFLOXACIN 750MG-D5W PMX 750 MG in DEXTROSE/WATER 1 150ML.BAG IVPB SCH (12:35)
[2017-04-03] MEDS: cefTRIAXone IN SWFI 2,000 MG/20 ML SYRINGE IVP SCH (16:36)
[2017-04-03] MEDS ORDERED: MENTHOL (NICE) LOZENGE MUCOUS MEM PRN (19:23)
[2017-04-03] MEDS: ATORVASTATIN 10 MG TAB PO SCH (22:13)
[2017-04-04] MEDS: metroNIDAZOLE-NS PMX 500 MG in SALINE 1 100ML.BAG IVPB SCH ×3 (00:41→17:05)
[2017-04-04] MEDS: METOCLOPRAMIDE 5 MG/ML 2 ML VIAL IVP SCH ×4 (00:41→18:32)
[2017-04-04] MEDS: HYDROcodone/APAP 7.5-325MG 1 EACH TAB PO PRN ×4 (04:57→22:38)
[2017-04-04] MEDS: D5-0.45% NACL WITH KCL 20MEQ/L 1,000 ML IV SCH ×3 (05:23→13:04)
[2017-04-04] MEDS: LACTATED RINGERS 1,000 ML IV SCH (10:02)
[2017-04-04] MEDS: PANTOPRAZOLE 40 MG/10 ML VIAL IV SCH (10:07)
[2017-04-04] MEDS: METOPROLOL TARTRATE 25 MG TAB PO SCH ×2 (10:07→22:36)
[2017-04-04] MEDS: FLUTICASONE 50MCG/SPRAY NASAL 16GM EA NOSTRIL SCH (10:07)
[2017-04-04] MEDS: ENOXAPARIN 40 MG/0.4 ML SYRINGE SQ SCH (10:08)
--- NOTE | 2017-04-04 10:39 | CONS ---
CONSULTATION DATE OF SERVICE: 04/03/2017. REASON FOR CONSULTATION: Abdominal abscess. HISTORY OF PRESENT ILLNESS: The patient is a 56-year-old female who did have a screening colonoscopy for history of colon cancer. The patient was noticed to have significant tortuosity of the colon with recent perforation. Subsequently the patient has been taken to the OR that afternoon where the patient did have laparoscopy with lysis of adhesions and repair of the perforation at 30 cm from the anal verge, and placement of the FREIDA drain. Unfortunately no OR culture were done. Subsequent the patient has been admitted to the hospital. She has been treated with broad-spectrum antibiotic in form of clindamycin, Levaquin and Flagyl because of her PENICILLIN ALLERGY. The patient did have a CT of the abdomen and pelvis done yesterday which did show new fairly moderate acute diverticulitis to the mid sigmoid colon, moderate size pelvic thin wall fluid collection with developing abscesses 6 x 4 cm. ID was consulted this morning for further recommendation regarding antibiotic therapy. The patient has been afebrile during this hospital stay, highest temperature has been 99.3. The patient did have elevated white count of 15.4 on admission and has stayed around 15.7 as of today. Clinically, the patient did mention the abdominal pain which is in the lower abdominal area for the last 3 days more of a dull aching intensity about 45-10 and no radiation , seemed to have been improving with the pain medication she is receiving. She still had significant output in her FREIDA drain. Cultures were obtained from the drain this morning. The patient denies having any fevers or rigors. Denies having any headache. No chest pain. No shortness of breath or cough. Did have a bowel movement x2, which are forming up. No blood or mucus in the stools. REVIEW OF SYSTEMS: Constitutional positive for weakness. Denies any high-grade fever. Eyes no complaint. ENT no complaint. Respiratory no complaint. Cardiovascular no complaint. Genitourinary no complaint. Gastrointestinal no complaint. Musculoskeletal no complaint. Psychological no complaint. Endocrine no complaint. Neurologic no complaint. PAST MEDICAL HISTORY: Significant for hyperlipidemia and diabetes mellitus. PAST SURGICAL HISTORY: Bladder surgery, back surgery, hysterectomy, tonsillectomy, right ear reconstruction, right ankle biopsy. SOCIAL HISTORY: Remote history of smoking. No drinking or drug use. FAMILY HISTORY: Father history of cancer and DVT. ALLERGIES: PENICILLIN with a rash. No history of anaphylaxis. Allergy to METFORMIN. MEDICATIONS: Include the patient is currently on: 1. [place]. 2. Lipitor. 3. Lovenox. 4. Flonase. 5. Dilaudid. 6. Levofloxacin. 7. Lopressor. 8. Flagyl. 9. Narcan. 10.Zofran. 11.Protonix. 12.Clindamycin. EXAMINATION: Blood pressure is 134/85 with a pulse of 85, temperature of 98.9, she is 94% on room air. GENERAL DESCRIPTION: A middle-aged female up in the chair in no distress. No tachypnea or accessory muscle of respiration use. HEENT: Shows no pallor or scleral icterus. Oral mucosa is dry. No pharyngeal erythema or thrush NECK: Trachea central. No thyromegaly. LUNGS: Unlabored breathing. Clear to auscultation anteriorly. No wheeze or crackle. HEART: S1, S2. Regular rate and rhythm. No murmur ABDOMEN: Soft, no tenderness. No guarding. No rigidity. FREIDA drain with serosanguineous secretion. EXTREMITIES: No edema of the feet. SKIN: No rash or mass palpable. NEUROLOGIC: The patient is awake, alert, oriented x3. Mood and affect normal. LABS: Hemoglobin is 12, white count 15.7, BUN of 8, creatinine 0.61. Urine culture has been negative. No blood cultures. She did have a body fluid culture obtained from the drain this morning, which is currently pending. CT report as mentioned above. DIAGNOSTIC IMPRESSION AND PLAN: 1. Patient with acute sigmoid diverticulitis with recent colon perforation, status post laparoscopic repair of the perforation. Unfortunately no OR cultures were done at that time, with a CT now showing a 6 x 4 cm developing abscess, likely organism That need to record will be enteric gram-negative mostly aerobes and anaerobes and less likely gram- positive jesus. 2. Patient has a penicillin allergy, limits number of antibiotics that we can safely use. PLAN: 1. the patient will be treated with broad-spectrum antibiotic in the form of Levaquin, Flagyl and Rocephin 2 g daily and discontinue the clindamycin as clinically less likely a gram-positive infection and his risk of C. diff colitis. 2. Aggressive IV fluid 3-closed monitoring of her cultures and white count 4-We will follow up on clinical condition as well as well as cultures obtained this morning to determine discharge antibiotics. Thank you for this consultation. Will follow this patient along with you. MMODL / IJN: [id number] / MISSY
--- NOTE | 2017-04-04 11:29 | P.PN ---
Subjective Progress Note Date: 04/04/17 Principal diagnosis: Colonic perforation The patient was kept in the hospital yesterday. She had evidence of leukocytosis with a white count of 15,000. On CAT scan she is also to have a fluid collection pelvis. Patient states she feels fairly well. And has minimal abdominal pain. Objective - Vital Signs Vital signs: Vital Signs Temp 98.3 F 04/04/17 08:00 Pulse 82 04/04/17 08:00 Resp 16 04/04/17 08:00 BP 118/66 04/04/17 08:00 Pulse Ox 96 04/04/17 08:00 Intake & Output 04/03/17 04/04/17 04/04/17 18:59 06:59 18:59 Intake Total 1240 1580 360 Output Total 1150 680 Balance 90 900 360 Intake: IV 1000 1000 D5-0.45% NaCl with KCl 1000 1000 20Meq/l 1,000 ml @ 125 mls/hr IV .Q8H [facility] Rx#: [id number] Intake, IV Titration 100 Amount metroNIDAZOLE-NS PMX 500 100 mg In Saline 1 100ml.bag @ 100 mls/hr IVPB Q8HR [facility] Rx#:[id number] Oral 240 480 360 Output: Drainage 30 Right Lower Abdomen 30 Urine 1150 650 Uretheral (Franco) 900 Other: Voiding Method Toilet Toilet # Voids 1 3 2 # Bowel Movements 2 1 - Constitutional General appearance: Present: cooperative - Gastrointestinal Gastrointestinal Comment(s): Abdomen is soft. Incision sites are clean dry and intact. - Labs CBC & Chem 7: 04/03/17 07:09 04/03/17 07:09 Labs: Microbiology - Last 24 Hours (Table) 04/03/17 05:00 Gram Stain - Preliminary Aspirate Body Fluid Culture - Preliminary Assessment and Plan Assessment: Fast post laparoscopic oversewing of colonic perforation. Patient's CBC is still pending this morning. If it is still elevated we'll recommend continued IV antibiotics. Dr. Omalley will resume her care in the morning.
[2017-04-04 11:34] LABS: Basophils % (A) 0 %; Eosinophils # (A) 0.3 k/uL (0-0.7); Eosinophils % (A) 3 %; HCT 40.2 % (34.0-46.0); HGB 13.1 gm/dL (11.4-16.0); Lymphocytes # (A) 1.7 k/uL (1.0-4.8); Lymphocytes % (A) 13 %; MCH 29.6 pg (25.0-35.0); MCHC 32.6 g/dL (31.0-37.0); MCV 90.8 fL (80.0-100.0); Mean Platelet Volume 7.4; Monocytes # (A) 0.6 k/uL (0-1.0); Monocytes % (A) 5 %; Neutrophils # (A) 10.5 k/uL (1.3-7.7); Neutrophils % (A) 78 %; Platelet Count 256 k/uL (150-450); RBC 4.43 m/uL (3.80-5.40); RDW 12.8 % (11.5-15.5); WBC 13.5 k/uL (3.8-10.6)
[2017-04-04] MEDS: LEVOFLOXACIN 750MG-D5W PMX 750 MG in DEXTROSE/WATER 1 150ML.BAG IVPB SCH (12:07)
[2017-04-04] MEDS: cefTRIAXone IN SWFI 2,000 MG/20 ML SYRINGE IVP SCH (15:31)
[2017-04-04] MEDS: ATORVASTATIN 10 MG TAB PO SCH (22:36)
[2017-04-04] MEDS: SCOPOLAMINE 1.5MG/72HR PATCH TRANSDERM SCH (22:37)
[2017-04-05] MEDS: metroNIDAZOLE-NS PMX 500 MG in SALINE 1 100ML.BAG IVPB SCH ×2 (00:23→07:50)
[2017-04-05] MEDS: METOCLOPRAMIDE 5 MG/ML 2 ML VIAL IVP SCH ×3 (00:23→12:47)
[2017-04-05] MEDS: HYDROcodone/APAP 7.5-325MG 1 EACH TAB PO PRN ×2 (04:04→07:50)
[2017-04-05] MEDS: D5-0.45% NACL WITH KCL 20MEQ/L 1,000 ML IV SCH ×2 (04:06→07:47)
[2017-04-05] MEDS ORDERED: SODIUM CHLORIDE 0.9% 1,000 ML IV SCH (06:45)
[2017-04-05 07:09] LABS: Basophils % (A) 0 %; Eosinophils # (A) 0.2 k/uL (0-0.7); Eosinophils % (A) 2 %; HCT 42.7 % (34.0-46.0); Lymphocytes # (A) 1.4 k/uL (1.0-4.8); Lymphocytes % (A) 9 %; MCH 29.5 pg (25.0-35.0); MCHC 32.9 g/dL (31.0-37.0); MCV 89.5 fL (80.0-100.0); Mean Platelet Volume 7.8; Monocytes # (A) 0.6 k/uL (0-1.0); Monocytes % (A) 4 %; Neutrophils # (A) 12.4 k/uL (1.3-7.7); Neutrophils % (A) 83 %; Platelet Count 315 k/uL (150-450); RBC 4.77 m/uL (3.80-5.40); RDW 13.7 % (11.5-15.5); WBC 14.9 k/uL (3.8-10.6)
[2017-04-05 07:27] LABS: Anion Gap 11 mmol/L; Blood Urea Nitrogen 7 mg/dL (7-17); Calcium 9.3 mg/dL (8.4-10.2); Carbon Dioxide 24 mmol/L (22-30); Chloride 103 mmol/L (98-107); Glucose 206 mg/dL (74-99); Potassium 4.1 mmol/L (3.5-5.1); Sodium 138 mmol/L (137-145)
[2017-04-05] MEDS: LACTATED RINGERS 1,000 ML IV SCH (07:48)
[2017-04-05] MEDS: FLUTICASONE 50MCG/SPRAY NASAL 16GM EA NOSTRIL SCH (07:52)
[2017-04-05] MEDS: ENOXAPARIN 40 MG/0.4 ML SYRINGE SQ SCH (07:52)
[2017-04-05] MEDS: METOPROLOL TARTRATE 25 MG TAB PO SCH (07:53)
[2017-04-05] MEDS: PANTOPRAZOLE 40 MG/10 ML VIAL IV SCH (07:53)
--- NOTE | 2017-04-05 09:22 | P.PN ---
<Elinor Clarke - Last Filed: 04/05/17 12:04> Subjective Progress Note Date: 04/05/17 56-year-old female seen and examined currently sitting up taking a diet. Patient states passing gas. FREIDA drain in place serous drainage. Patient states having mild abdominal pain. States had a bowel movement the day before afebrile white count 14.9 postop March 31 diagnostic laparoscopic lysis of adhesions placement left lower quadrant FREIDA drain intraoperative colonoscopy for sigmoidoscopy Objective - Vital Signs Vital signs: Vital Signs Temp 98 F 04/05/17 02:32 Pulse 88 04/05/17 02:32 Resp 17 04/05/17 04:00 BP 135/88 04/05/17 02:32 Pulse Ox 95 04/05/17 02:32 Intake & Output 04/04/17 04/05/17 04/05/17 18:59 06:59 18:59 Intake Total 1597 1700 Output Total 30 410 Balance 1567 1290 Weight 73.3 kg Intake: IV 1000 1000 D5-0.45% NaCl with KCl 1000 1000 20Meq/l 1,000 ml @ 125 mls/hr IV .Q8H TATYANA Rx#: [id number] Intake, IV Titration 100 Amount metroNIDAZOLE-NS PMX 500 100 mg In Saline 1 100ml.bag @ 100 mls/hr IVPB Q8HR TATYANA Rx#:[id number] Oral 597 600 Output: Drainage 30 10 Right Lower Abdomen 30 10 Urine 400 Other: Voiding Method Toilet Toilet # Voids 2 2 - Exam physical exam 56-year-old female sitting up in bed taking diet appears in no acute distress Lungs adequate air movement bilaterally on room air Heart S1-S2 audible regular Abdomen FREIDA drain left lower quadrant serous straw-colored secretions soft nontender nondistended bowel tones present passing gas Extremities no edema - Labs CBC & Chem 7: 04/05/17 06:55 04/05/17 06:55 Labs: Abnormal Lab Results - Last 24 Hours (Table) 04/04/17 04/05/17 04/05/17 Range/Units 10:43 06:55 06:55 WBC 13.5 H 14.9 H (3.8-10.6) k/uL Neutrophils # 10.5 H 12.4 H (1.3-7.7) k/uL Glucose 206 H (74-99) mg/dL Microbiology - Last 24 Hours (Table) 04/03/17 05:00 Gram Stain - Preliminary Aspirate Body Fluid Culture - Preliminary Assessment and Plan Assessment: Impression History of diverticulosis History of perforated diverticulitis following colonoscopy Status post March 31 diagnostic laparoscopic be oversew of colotomy, placement FREIDA drain left lower quadrant, interoperative colonoscopy for sigmoidoscopy Family history of colon cancer Hyperlipidemia Severe sigmoid diverticulosis with moderate redundant colon was identified. Postop leukocytosis likely reactive Plan Continue postop surgical care discharge today Continue Lopressor 25 twice a day monitor the response Pain control Increase activity DVT and GI prophylaxis Repeat labs in the morning The above impression and plan of care have been discussed and directed by signing physician. Elinor Clarke nurse practitioner acting as scribe for signing physician. <Ashley Cohn - Last Filed: 04/05/17 21:20> Objective - Vital Signs Vital signs: Vital Signs Temp 98.1 F 04/05/17 08:00 Pulse 74 04/05/17 08:00 Resp 16 04/05/17 08:00 BP 107/72 04/05/17 08:00 Pulse Ox 92 L 04/05/17 08:00 Intake & Output 04/05/17 04/05/17 04/06/17 06:59 18:59 06:59 Intake Total 1700 Output Total 410 0 Balance 1290 0 Weight 73.3 kg 73.3 kg Intake: IV 1000 D5-0.45% NaCl with KCl 1000 20Meq/l 1,000 ml @ 125 mls/hr IV .Q8H TATYANA Rx#: [id number] Intake, IV Titration 100 Amount metroNIDAZOLE-NS PMX 500 100 mg In Saline 1 100ml.bag @ 100 mls/hr IVPB Q8HR TATYANA Rx#:[id number] Oral 600 Output: Drainage 10 0 Right Lower Abdomen 10 0 Urine 400 Other: Voiding Method Toilet # Voids 2 - Exam GENERAL: Well developed and in no acute distress. Pleasant. HEENT: No sclera icterus. Extraocular movements grossly intact. Moist buccal mucosa. Head is atraumatic, normocephalic. Hears conversational speech. No nasal drainage. NECK: Supple without lymphadenopathy. No JV distention. CHEST: Non-labored respirations and equal bilateral excursions. CARDIOVASCULAR: Regular rate and rhythm. Palpable 2+ radial pulses. ABDOMEN: Soft, nontender. Nondistended. FREIDA improved from seropurulent to serous. MUSCULOSKELETAL: No clubbing, cyanosis or edema. NEUROLOGIC: No focal or lateralizing signs. PSYCH: Appropriate affect. Alert and oriented to person, place and time. SKIN: Good skin turgor. Well perfused. - Labs CBC & Chem 7: 04/05/17 06:55 04/05/17 06:55 Labs: Abnormal Lab Results - Last 24 Hours (Table) 04/05/17 04/05/17 Range/Units 06:55 06:55 WBC 14.9 H (3.8-10.6) k/uL Neutrophils # 12.4 H (1.3-7.7) k/uL Glucose 206 H (74-99) mg/dL Microbiology - Last 24 Hours (Table) 04/03/17 05:00 Gram Stain - Preliminary Aspirate Body Fluid Culture - Preliminary Assessment and Plan (1) Diverticulosis Status: Acute Code(s): K57.90 - DVRTCLOS OF INTEST, PART UNSP, W/O PERF OR ABSCESS W/O BLEED SNOMED Code(s): 21830561 (2) Perforation of sigmoid colon Status: Acute Code(s): K63.1 - PERFORATION OF INTESTINE (NONTRAUMATIC) SNOMED Code(s): 981846553 (3) Perforation of colon as colonoscopy complication Status: Acute Code(s): K63.1 - PERFORATION OF INTESTINE (NONTRAUMATIC); K91.71 - ACCIDENTAL PNCTR & LAC OF A DGSTV SYS ORG DUR DGSTV SYS PROC SNOMED Code(s): 25843943 (4) Diabetes type 2, controlled Status: Acute Code(s): E11.9 - TYPE 2 DIABETES MELLITUS WITHOUT COMPLICATIONS SNOMED Code(s): 43531609 (5) Family history of colon cancer Status: Acute Code(s): Z80.0 - FAMILY HISTORY OF MALIGNANT NEOPLASM OF DIGESTIVE ORGANS SNOMED Code(s): 353396170 Plan: Per discussion with ID and the patient, agreeable for discharge with follow-up in the office and repeat computed tomography scan.
--- NOTE | 2017-04-05 09:58 | PN ---
PROGRESS NOTE DATE OF SERVICE: 04/04/2017. REASON FOR FOLLOW UP: Abdominal abscess. INTERVAL HISTORY: The patient is afebrile. She is feeling better. Breathing comfortably. Abdominal pain has improved. The patient denies having nausea, vomiting. Tolerating regular diet. No bowel movement today. Overall, output in the FREIDA has decreased. EXAMINATION: Blood pressure 144/88 with a pulse of 81, temperature of 98.2. She is 95% on room air. General description is a middle-aged female up in the bed, in no distress. Respiratory system unlabored breathing. Clear to auscultation anteriorly. Heart S1, S2. Regular rate and rhythm. Abdomen soft. No tenderness. EXT: no edema feet. LABS: Hemoglobin is 13.9, white count down to 13.5. The cultures are currently pending. DIAGNOSTIC IMPRESSION AND PLAN: Patient with abdominal abscess. It is likely from enteric gram-positive to gram negative both aerobes and anaerobes. The patient white count responded with the addition of the Rocephin that will be continued along with Flagyl. Awaiting further cultures to finalize to determine discharge antibiotics. More likely oral. Continue supportive care. MMODL / IJN: [id number] / MTDD
[2017-04-05 10:17] VITALS: BP 107/72; PULSE 74; RESP 16; TEMP 98.1
[2017-04-05 12:04] VITALS: BMI 23.8
--- NOTE | 2017-04-05 12:13 | P.PN ---
Progress Note - Text Progress Note Date: 04/05/17 Patient seen and evaluated. Care plan discussed with infectious disease. She denies abdominal pain and she is urinating freely. Secondary to patient's penicillin ALLERGY, antibiotics have been tailored. Additionally micrology cultures are pending from her peritoneal fluid. Options for care were discussed including attempted CT-guided drainage of the pelvic abscess including continuing antibiotics for one week repeat CT were described by the infectious disease provider. Patient had elected for discharge home with follow-up in the office. FREIDA drain has moderately improved from seropurulent to serous. Patient will follow-up in the office in 1 week for possible FREIDA removal including a repeat computed tomography scan. Dietitian to see patient regarding diabetic diet and diverticulitis diet.
--- NOTE | 2017-04-05 12:23 | P.DS ---
<Elinor Clarke - Last Filed: 04/05/17 12:04> Providers Date of admission: 03/31/17 09:44 Expected date of discharge: 04/05/17 Attending physician: Ashley Cohn Consults: 04/03/17 08:24 Consult Physician Urgent Consulting Provider: Eleazar Chery Consult Reason/Comments: Peritoneal abscess antibiotic management Do you want consulting provider notified?: Yes Primary care physician: Stated None Hospital Course: 56-year-old female presented with a abdominal pain has a history of diverticulosis with prior diverticulitis. Also positive family history of colon cancer. Patient presented with perforated diverticulosis following a colonoscopy. Patient was adamant wanting to avoid an ostomy bag. Surgical intervention with a diagnostic laparoscopic was done for severe sigmoid diverticulosis.. On the 31 March the patient did undergo diagnostic laparoscopic lysis of adhesions placement of a left lower FREIDA drain. Patient was followed throughout the hospitalization by infectious disease.. Patient's CAT scan done on the fifth of the abdomen and pelvis showed a fairly moderate size pelvic fluid collection felt to reflect developing abscess. Due to the location probably difficult to access for percutaneous drainage. Patient was given an option of having interventional radiology evaluate this area for possible drainage or continue with outpatient antibiotic therapy for 2 weeks a repeat a CAT scan of the abdomen and pelvis. Patient elected to be discharged with the 2 week follow-up with antibiotic therapy as ordered by infectious disease. day of discharge patient was ambulatory in the madrigal pain medication effective for pain control no nausea no vomiting afebrile the white count on April 05 was 14.9 electrolytes within normal limits FREIDA drain showed serous drainage Patient was seen by the dietitian did receive information in regards to a diabetic diet and diverticulitis Patient was felt to be hemodynamically stable and appropriate to proceed with a discharge Impression History of diverticulosis History of perforated diverticulitis following colonoscopy Status post March 31 diagnostic laparoscopic be oversew of colotomy, placement FREIDA drain left lower quadrant, interoperative colonoscopy for sigmoidoscopy Family history of colon cancer Hyperlipidemia Severe sigmoid diverticulosis with moderate redundant colon was identified. Postop leukocytosis likely reactive CAT scan abdomen and pelvis show pelvic abscess The above impression and plan of care have been discussed and directed by signing physician. Elinor Clarke nurse practitioner acting as scribe for signing physician. Patient Condition at Discharge: Stable Plan - Discharge Summary Discharge Rx Participant: Yes New Discharge Prescriptions: New HYDROcodone/APAP 5-325MG [[place] 5-325] 1 tab PO Q6HR PRN #30 tab PRN Reason: Pain Ciprofloxacin HCl [Cipro] 500 mg PO Q12HR #28 tablet metroNIDAZOLE [Flagyl] 500 mg PO TID #42 tab Continue Atorvastatin Calcium [Lipitor] 10 mg PO HS Ibuprofen 200 - 400 mg PO DAILY PRN PRN Reason: Pain Fluticasone Nasal [place] [Flonase Nasal [place]] 2 spr EA NOSTRIL DAILY Discharge Medication List Atorvastatin Calcium [Lipitor] 10 mg PO HS 03/25/17 [History] Fluticasone Nasal [place] [Flonase Nasal [place]] 2 spr EA NOSTRIL DAILY 03/25/17 [ History] Ibuprofen 200 - 400 mg PO DAILY PRN 03/25/17 [History] HYDROcodone/APAP 5-325MG [[place] 5-325] 1 tab PO Q6HR PRN #30 tab 04/02/17 [Rx] Ciprofloxacin HCl [Cipro] 500 mg PO Q12HR #28 tablet 04/05/17 [Rx] metroNIDAZOLE [Flagyl] 500 mg PO TID #42 tab 04/05/17 [Rx] Follow up Appointment(s)/Referral(s): Ashley Cohn MD [STAFF PHYSICIAN] - 04/06/17 1:40 pm Eleazar Chery MD [STAFF PHYSICIAN] - 04/15/17 11:15 am Patient Instructions/Handouts: Diverticulitis (DC), Gavin-Welch Drain Care ( DC), Laparoscopic Bowel Resection (DC), Diverticulitis Diet (GEN), Perforated Bowel (DC) Activity/Diet/Wound Care/Special Instructions: [facility] - No tub bath for six weeks. Shower daily. No lifting over 4 pounds for the next 6 weeks. Monitor FREIDA drain and record. May use ice packs to surgical site. No driving while taking narcotic for pain. Continue the diabetic diet and diverticulitis diet as instructed by the dietitian Discharge Disposition: HOME SELF-CARE <Ashley Cohn - Last Filed: 04/05/17 21:19> - Discharge Diagnosis(es) (1) Diverticulosis Status: Acute (2) Perforation of sigmoid colon Status: Acute (3) Perforation of colon as colonoscopy complication Perforation is inherent to the procedure due to baseline morbidity of severe and symptomatic diverticulosis Status: Acute (4) Diabetes type 2, controlled Status: Acute (5) Family history of colon cancer Status: Acute Pertinent Studies: CT of the abdomen and pelvis demonstrating resolved perforation of the descending colon, expected fluid collection of the pelvis from previous irrigation fluid Procedures: Colonoscopy to the sigmoid colon with finding of perforation of severe sigmoid diverticulosis. Diagnostic laparoscopy lysis of adhesions with abdominal washout and placement of FREIDA drain, oversew of colotomy of sigmoid colon
[2017-04-05] MEDS: LEVOFLOXACIN 750MG-D5W PMX 750 MG in DEXTROSE/WATER 1 150ML.BAG IVPB SCH (12:47)
--- NOTE | 2017-04-05 13:46 | PN ---
PROGRESS NOTE DATE OF SERVICE: 04/05/2017 REASON FOR FOLLOWUP: Abdominal abscess. INTERVAL HISTORY: The patient is afebrile. She is breathing comfortably. Denies having any chest pain or cough. Abdominal pain has improved. Output in the FREIDA has decreased. No nausea, vomiting and no diarrhea. Did not have any bowel movement. PHYSICAL EXAMINATION: Blood pressure 107/72 with a pulse of 74, temperature of 98.1 She is 92% on room air. General description is a middle-aged female, up in the room in no distress. RESPIRATORY SYSTEM: Unlabored breathing, clear to auscultation anteriorly. HEART: S1, S2. Regular rate and rhythm. ABDOMEN: Soft, no tenderness. FREIDA drain with minimal secretion. EXTREMITIES: No edema of the feet. LABS: Hemoglobin is 14, white count 14.9, BUN of 7, creatinine 0.63. CT was reviewed with Dr. Mckeon, which did show a deep pelvic fluid collection. DIAGNOSTIC IMPRESSION AND PLAN: Patient with secondary peritonitis with abdominal abscess, status post laparoscopic repair of the perforation, now with elevated white count and development of a fluid collection, questionably postsurgical or an abscess. Clinically, patient does not look toxic. Did not have any high fever, except elevated white count and the fluid that was sent from the FREIDA is currently coming back negative. This was obtained while the patient was on Levaquin and Flagyl. I did review the CT with the radiologist. This will be hard to get a CT-guided drainage of this fluid. Plan of care discussed in detail with the patient. Either we push the radiologist to the CT-guided drainage and then wait for the cultures before we discharge her or later go home on oral Cipro and Flagyl for 2 weeks and do a repeat CT in 2 weeks. Patient opted to go on oral antibiotics rather than going for CT-guided drainage. This was discussed in detail with the surgeon who agreed. She will be discharged on these 2 antibiotics and close outpatient followup. All her questions were answered. She has been advised if any fever or worsening abdominal pain after she goes home, she needs to come back to the hospital right away. MMODL / GIOVANNIN: [id number] / MISSY
[2017-04-06] MEDS ORDERED: metroNIDAZOLE 500 MG TAB PO SCH
[2017-04-06] MEDS ORDERED: LEVOFLOXACIN 750 MG TAB PO SCH (11:00)
== END 2017-04-05 15:44 | disposition home health service (06) | DRG 907 ==
LOC: ORWHC2ENDO 07:30 → 3SUR 09:44 → 6SEL 15:42 → 3SUR 04-01 17:08
PROVIDERS: ADMIT Surgery Plastic and Reconstructive Surgery; ATTEND Surgery Plastic and Reconstructive Surgery
PROC: 0DQN4ZZ Repair Sigmoid Colon, Percutaneous Endoscopic Approach (ICD-10-PCS; 2017-03-31)
PROC: 3E1M38X Irrigation of Peritoneal Cavity using Irrigating Substance, Percutaneous Approach, Diagnostic (ICD-10-PCS; 2017-03-31)
PROC: 0DJD8ZZ Inspection of Lower Intestinal Tract, Via Natural or Artificial Opening Endoscopic (ICD-10-PCS; 2017-03-31)
PROC: 0W9G40Z Drainage of Peritoneal Cavity with Drainage Device, Percutaneous Endoscopic Approach (ICD-10-PCS; 2017-03-31)
PROC: 0DJD8ZZ Inspection of Lower Intestinal Tract, Via Natural or Artificial Opening Endoscopic (ICD-10-PCS; principal; 2017-03-31 08:00)
DX: K91.71 Accidental puncture and laceration of a digestive system organ or structure during a digestive system procedure (principal); K65.1 Peritoneal abscess; K57.20 Diverticulitis of large intestine with perforation and abscess without bleeding; Q43.8 Other specified congenital malformations of intestine; K66.0 Peritoneal adhesions (postprocedural) (postinfection); E11.9 Type 2 diabetes mellitus without complications; E78.5 Hyperlipidemia, unspecified; Z79.51 Long term (current) use of inhaled steroids; Z79.899 Other long term (current) drug therapy; Z90.710 Acquired absence of both cervix and uterus; Z87.891 Personal history of nicotine dependence; Z88.0 Allergy status to penicillin; Z88.8 Allergy status to other drugs, medicaments and biological substances; Z80.0 Family history of malignant neoplasm of digestive organs; Y83.8 Other surgical procedures as the cause of abnormal reaction of the patient, or of later complication, without mention of misadventure at the time of the procedure; Y92.234 Operating room of hospital as the place of occurrence of the external cause
CPT/HCPCS: 45378; 74177; 80048; 80053; 83605; 83735; 84100; 85025; 87070; 87086; 87205; 88108; 88305

== ENCOUNTER → 2017-04-19 | Outpatient (CLI) | payer BC, OTHER ==
--- NOTE | 2017-04-20 07:16 | MM ---
Reason for exam: additional evaluation requested from prior study. Last mammogram was performed 7 months ago. History: Patient is postmenopausal. Family history of breast cancer in cousin at age 46. Reductions of both breasts, 2004. Benign core biopsy of the right breast, 2003. Benign excisional biopsy of the right breast, 2002. Physical Findings: Nurse did not find any significant physical abnormalities on exam. MG 3D Diag Mammo W/Cad NANDA Bilateral CC and MLO view(s) were taken. Prior study comparison: September 28, 2016, right breast MG 3d diag mammo w/cad RT. January 23, 2016, bilateral MG 3d diag mammo w/cad NANDA. There are scattered fibroglandular densities. There is no discrete abnormality. No significant new findings when compared with previous films. These results were verbally communicated with the patient and result sheet given to the patient on 04/19/17. ASSESSMENT: Negative, BI-RAD 1 RECOMMENDATION: Routine screening mammogram of both breasts in 1 year.
== END | disposition home or self-care (01) ==
LOC: RADMAMWWP 14:48
PROVIDERS: ATTEND Surgery
DX: R92.8 Other abnormal and inconclusive findings on diagnostic imaging of breast (principal)
CPT/HCPCS: 77066; G0279

== ENCOUNTER → 2017-04-22 | Outpatient (CLI) | payer BC, OTHER ==
[2017-04-22 13:20] LABS: Basophils # (A) 0.1 k/uL (0-0.2); Basophils % (A) 1 %; Eosinophils # (A) 0.1 k/uL (0-0.7); Eosinophils % (A) 1 %; HCT 46.2 % (34.0-46.0); Lymphocytes # (A) 2.9 k/uL (1.0-4.8); Lymphocytes % (A) 32 %; MCH 28.7 pg (25.0-35.0); MCHC 32.5 g/dL (31.0-37.0); MCV 88.5 fL (80.0-100.0); Mean Platelet Volume 7.9; Monocytes # (A) 0.4 k/uL (0-1.0); Monocytes % (A) 5 %; Neutrophils # (A) 5.2 k/uL (1.3-7.7); Neutrophils % (A) 58 %; Platelet Count 334 k/uL (150-450); RBC 5.22 m/uL (3.80-5.40); RDW 13.3 % (11.5-15.5)
[2017-04-22 13:38] LABS: Anion Gap 11 mmol/L; Blood Urea Nitrogen 12 mg/dL (7-17); Calcium 10.3 mg/dL (8.4-10.2); Carbon Dioxide 29 mmol/L (22-30); Chloride 101 mmol/L (98-107); Glucose 164 mg/dL (74-99); Potassium 4.9 mmol/L (3.5-5.1); Sodium 141 mmol/L (137-145)
== END | disposition home or self-care (01) ==
LOC: LABWHC1 12:57
PROVIDERS: ATTEND Internal Medicine Infectious Disease
DX: K65.1 Peritoneal abscess (principal)
CPT/HCPCS: 36415; 80048; 85025

== ENCOUNTER → 2017-05-10 | Outpatient (CLI) | payer BC, OTHER ==
--- NOTE | 2017-05-10 14:34 | CT ---
EXAMINATION TYPE: CT abdomen pelvis w con DATE OF EXAM: 05/10/2017 COMPARISON: 04/02/2017 INDICATION: Peritoneal abscess DLP: 1250 mGycm, Automated exposure control for dose reduction was used. CONTRAST: 100 ml mL of Omnipaque 300. Study performed with Oral Contrast TECHNIQUE: Axial images were obtained from above the diaphragm to the pubic rami in the axial plane a t 5 mm thick sections. Reconstructed images are reviewed on the computer in the coronal plane. FINDINGS: Limited CT sections are obtained the lung bases. The lung bases are clear. CT ABDOMEN: Liver: Normal Spleen: Normal Pancreas: Normal Adrenal glands: The adrenal glands are normal. Gallbladder: Normal Kidneys: No masses are evident. No hydronephrosis is present. No cysts are present. There is a 0.3 and a 0.4 cm nonobstructing calcification at superior pole left kidney. Aorta: Vascular calcification is within the aorta. Inferior vena cava: Normal. CT PELVIS: Loops of bowel within the abdomen and pelvis are normal. Diverticular changes are within the sigm oid colon. No acute diverticulitis is evident. There is a nondrainable 0.6 cm hypoechoic dense collec tion adjacent to the anterior rectum may represent a small abscess. This may be residual from the sig nificantly larger abscess 04/02/2017 Appendix: Normal as visualized. Urinary bladder: Normal. Genitourinary structures: Uterus and ovaries are not identified. Vaginal cuff region appears normal. Osseous structures: No suspicious lytic or sclerotic lesions. IMPRESSIONS: 1. There may be a small abscess adjacent to these distal sigmoid colon and rectum. This is significa ntly diminished in size compared to the study of 04/02/2017.
== END | disposition home or self-care (01) ==
LOC: RADCTMAIN 08:24
PROVIDERS: ATTEND Internal Medicine Infectious Disease
DX: K65.1 Peritoneal abscess (principal)
CPT/HCPCS: 74177; Q9967

== ENCOUNTER → 2017-07-15 | Outpatient (CLI) | payer BC, OTHER ==
--- NOTE | 2017-07-16 12:42 | XR ---
2 view abdomen HISTORY: Abdomen pain 2 views the abdomen submitted on 3 images correlated prior exam 02/03/2016, CT abdomen pelvis 8 Scattered calcifications within the pelvis may be vascular. Bone mineralization is maintained. Degene rative disc changes are present in the visualized spine, there is mild spinal curvature. There is no bowel obstruction or pneumoperitoneum. Lung bases are clear. Liver is enlarged. IMPRESSION: No significant interval change. Possible hepatic steatosis, hepatomegaly.
== END | disposition home or self-care (01) ==
LOC: RADXRMAIN 17:04
PROVIDERS: ATTEND Family Medicine
DX: R10.9 Unspecified abdominal pain (principal)
CPT/HCPCS: 74019

== ENCOUNTER → 2019-02-20 | Outpatient (CLI) | payer BC ==
--- NOTE | 2019-02-21 09:08 | MM ---
Reason for exam: screening (asymptomatic). Last mammogram was performed 1 year and 10 months ago. History: Patient is postmenopausal. Family history of breast cancer in cousin at age 46. Reductions of both breasts, 2004. Benign core biopsy of the right breast, 2003. Benign excisional biopsy of the right breast, 2002. Physical Findings: A clinical breast exam by your physician is recommended on an annual basis and results should be correlated with mammographic findings. MG Screening Mammo w CAD Bilateral CC and MLO view(s) were taken. Prior study comparison: April 19, 2017, bilateral MG 3d diag mammo w/cad NANDA. September 28, 2016, right breast MG 3d diag mammo w/cad RT. There are scattered fibroglandular densities. There is no discrete abnormality. No significant changes when compared with prior studies. ASSESSMENT: Negative, BI-RAD 1 RECOMMENDATION: Routine screening mammogram of both breasts in 1 year.
== END | disposition home or self-care (01) ==
LOC: RADMAMWWP 08:02
PROVIDERS: ATTEND Family Medicine
DX: Z12.31 Encounter for screening mammogram for malignant neoplasm of breast (principal)
CPT/HCPCS: 77067

== ENCOUNTER 2021-01-11 14:47 | Emergency (ER) | payer BC, OTHER ==
[2021-01-11 15:03] VITALS: TEMP 98
[2021-01-11] MEDS ORDERED: SODIUM CHLORIDE 0.9% 1,000 ML IV STA ×2 (16:31→17:42)
[2021-01-11] MEDS ORDERED: ONDANSETRON 4 MG/2 ML VIAL IVP STA (16:31)
[2021-01-11] MEDS ORDERED: MORPHINE SULFATE 4 MG/ML SYRINGE IV STA (16:31)
[2021-01-11] MEDS ORDERED: diphenhydrAMINE 50 MG/ML 1 ML VIAL IVP STA (16:31)
[2021-01-11] MEDS ORDERED: FAMOTIDINE 20 MG/2 ML VIAL IV STA (16:32)
[2021-01-11] MEDS ORDERED: LIDOCAINE VISCOUS 2% 15 ML CUP MUCOUS MEM ONE (16:32)
[2021-01-11 16:57] LABS: Basophils # (A) 0.1 k/uL (0-0.2); Basophils % (A) 0 %; Eosinophils % (A) 0 %; HGB 15.4 gm/dL (11.4-16.0); Lymphocytes # (A) 1.7 k/uL (1.0-4.8); Lymphocytes % (A) 8 %; MCH 30.5 pg (25.0-35.0); MCHC 33.5 g/dL (31.0-37.0); MCV 91.2 fL (80.0-100.0); Mean Platelet Volume 8.1; Monocytes # (A) 0.5 k/uL (0-1.0); Monocytes % (A) 2 %; Neutrophils # (A) 20.2 k/uL (1.3-7.7); Neutrophils % (A) 89 %; Platelet Count 284 k/uL (150-450); RBC 5.04 m/uL (3.80-5.40); RDW 12.2 % (11.5-15.5); WBC 22.7 k/uL (3.8-10.6)
[2021-01-11 16:59] LABS: Appearance,Urine Cloudy (Clear); Bacteria,Urine Many /hpf; Bilirubin,Urine 1+ (Negative); Blood,Urine Negative (Negative); Calcium Oxalate Crystals,Urine Many /hpf; Color,Urine Dark Yellow; Glucose,Urine (UA) 3+ (Negative); Leukocyte Esterase,Urine Negative (Negative); Mucus,Urine Occasional /hpf; Nitrite,Urine Positive (Negative); PH, Urine 5.5 (5.0-8.0); Protein,Urine Trace (Negative); RBC,Urine 2 /hpf (0-5); Specific Gravity,Urine 1.024 (1.001-1.035); Squamous Epithelial Cell,Urine 2 /hpf (0-4); WBC,Urine 3 /hpf (0-5)
--- NOTE | 2021-01-11 17:06 | ED ---
General Adult HPI - General Chief complaint: Abdominal Pain Stated complaint: Abd Pain Time Seen by Provider: 01/11/21 16:02 Source: patient, RN notes reviewed, old records reviewed Mode of arrival: ambulatory Limitations: no limitations - History of Present Illness Initial comments: I evaluated the patient when she was placed in a room. Patient is a 60-year-old female with past medical history remarkable for gastric ulcers, prior perforated bowel secondary to colonoscopy status post repair, diabetes, GERD who presents emergency Department complaining of a 3 to four-day history of worsening epigastric abdominal pain. She describes it as a sharp achy pain located in epigastrium. She states that today it is been more or less constant but over e last few days it is intermittently there. She denies any known associated palliative or provocative factors. She states she does not know vision of the pain. She denies any shortness of breath, chest pain. Denies any urinary complaints including dysuria, hematuria. Denies any vaginal discharge or bleeding. Denies any change in bowel movements her stooling habits. Denies any diarrhea. She still has her gallbladder in place. She does endorse nausea as well as multiple episodes of possible bilious emesis that is yellow in nature. She is having difficulty tolerating by mouth intake due to the nausea. Patient presents over concern for her epigastric abdominal discomfort of unknown et iology. She does state it feels like her gastric ulcers flaring, however it is somewhat worse than it typically is. - Related Data Home Medications Medication Instructions Recorded Confirmed Semaglutide [Ozempic] 1 mg SQ MO 12/17/19 12/17/19 Atorvastatin [Lipitor] 20 mg PO HS 01/11/21 01/11/21 Fluticasone Nasal [place] [Flonase 1 spray EA NOSTRIL DAILY PRN 01/11/21 01/11/21 Nasal [place]] Pantoprazole [Protonix] 40 mg PO DAILY 01/11/21 01/11/21 Previous Rx's Medication Instructions Recorded Aspirin 81 mg PO DAILY #30 chew 12/18/19 Allergies Allergy/AdvReac Type Severity Reaction Status Date / Time metformin Allergy Vomiting Verified 01/11/21 18:40 Penicillins Allergy Rash/Hives Verified 01/11/21 18:40 Review of Systems ROS Statement: Those systems with pertinent positive or pertinent negative responses have been documented in the HPI. Review of Systems: CONST: Denies fever EYES: Denies blurry vision ENT: Denies nasal congestion C/V: Denies Chest pain RESP: Denies shortness of breath GI: Endorses abdominal pain : Denies dysuria SKIN: Denies rash. MSK: Denies joint pain. NEURO: Denies headache ROS Other: All systems not noted in ROS Statement are negative. Past Medical History Past Medical History: Diabetes Mellitus, GERD/Reflux, Hyperlipidemia Additional Past Medical History / Comment(s): hx ulcer History of Any Multi-Drug Resistant Organisms: None Reported Past Surgical History: Bladder Surgery, Breast Surgery, Ear Surgery, Hysterectomy, Tonsillectomy Additional Past Surgical History / Comment(s): rt ear reconstruction, azam breast reduction , rt ankle bone biopsy, perforated bowel removed from colonoscopy. Past Anesthesia/Blood Transfusion Reactions: No Reported Reaction Past Psychological History: No Psychological Hx Reported Smoking Status: Former smoker Past Alcohol Use History: None Reported Past Drug Use History: None Reported - Past Family History Father Family Medical History: Cancer, Deep Vein Thrombosis (DVT) General Exam - General Exam Comments Initial Comments: General: Sitting mild to moderate distress secondary to abdominal discomfort. HEAD: Normal with no signs of head trauma. EYES: PERRLA, EOMI, conjunctiva normal, no discharge. ENT: Hearing grossly intact, normal oropharynx. RESPIRATORY: Clear breath sounds bilaterally. No wheezes, rales, or rhonchi. C/V: Regular rate and rhythm. S1 and S2 auscultated, no edema, peripheral pulses 2+ and intact throughout ABD: Abdomen is soft, nondistended. Patient is tender palpation in the epigastric and mildly in the right upper quadrant. No rebound tenderness. No guarding. No peritoneal signs. No CVA tenderness to percussion. EXT: Normal range of motion, no obvious deformity SKIN: No rashes or lesions observed on exposed skin. NEURO: Alert and oriented 4. Limitations: no limitations Course Vital Signs 01/11/21 01/11/21 14:59 18:42 Temperature 98.0 F Pulse Rate 69 120 H Respiratory 18 16 Rate Blood Pressure 138/79 160/87 O2 Sat by Pulse 96 97 Oximetry Medical Decision Making - Medical Decision Making Based on the patient's presentation and physical exam, I'm concerned for acute abdominal process for current symptoms. Cannot rule out gallbladder or stomach pathology. We will obtain abdominal laboratory studies in addition to right upper quadrant ultrasound and CT abdomen and pelvis due to her persistent pain. Urine studies will also be obtained. Due to her age and being female, we will also obtain cardiac screening labs for atypical presentation of ACS. This includes troponin, EKG, chest x-ray. Patient was in agreement this plan. She'll be symptomatically treated with a 1 L fluid bolus, IV Benadryl Pepcid morphine and Zofran as well as oral viscous lidocaine. She was in agreement this plan. Patient's laboratory studies were remarkable for a leukocytosis of 22.7, a lactic acidosis of 2.0 which is likely secondary to dehydration and she does have 2+ ketones in the urine. Patient will be given an additional fluid bolus and reevaluated. Patient has elevated LFTs, alk phos of 221, ALT of 162 and AST of 35. Chest x-ray shows no acute cardiopulmonary process. Right upper quadrant ultrasound revealed numerous gallstones in the gallbladder with wall thickening suggestive of cholecystitis as well as a dilated biliary tree possibly concerning for choledocholithiasis. CT abdomen and pelvis revealed large occult blood with gallstones and a dilated biliary tree with wall thickening. Common duct stone is possible. EKG showed sinus tachycardia without ischemia. Due to patient's acute cholecystitis, she will be started on Flagyl and cefepime. She was given an additional fluid bolus and we will repeat the lactic acid level which is still pending at this time. I discussed with her the res ults of her imaging and laboratory studies that she likely will require surgery and evaluation by GI and surgery. I initially called our surgeon, Dr. Ortiz who was in agreement that the patient requires GI coverage, however hospital currently has no GI coverage. She may require an ERCP. Therefore we will transfer the patient to [facility]. I spoke with [facility] over the phone, and they accepted the transfer. Accepting physician is Dr. Winkler. Patient is transferred in serious condition. She is made nothing by mouth. - Lab Data Result diagrams: 01/11/21 16:45 01/11/21 16:45 Lab Results 01/11/21 01/11/21 01/11/21 Range/Units 16:45 16:45 16:45 WBC 22.7 H (3.8-10.6) k/uL RBC 5.04 (3.80-5.40) m/uL Hgb 15.4 (11.4-16.0) gm/dL Hct 46.0 (34.0-46.0) % MCV 91.2 (80.0-100.0) fL MCH 30.5 (25.0-35.0) pg MCHC 33.5 (31.0-37.0) g/dL RDW 12.2 (11.5-15.5) % Plt Count 284 (150-450) k/uL MPV 8.1 Neutrophils % 89 % Lymphocytes % 8 % Monocytes % 2 % Eosinophils % 0 % Basophils % 0 % Neutrophils # 20.2 H (1.3-7.7) k/uL Lymphocytes # 1.7 (1.0-4.8) k/uL Monocytes # 0.5 (0-1.0) k/uL Eosinophils # 0.0 (0-0.7) k/uL Basophils # 0.1 (0-0.2) k/uL PT 10.7 (9.0-12.0) sec INR 1.0 (<1.2) APTT 20.9 L (22.0-30.0) sec Sodium (137-145) mmol/L Potassium (3.5-5.1) mmol/L Chloride (98-107) mmol/L Carbon Dioxide (22-30) mmol/L Anion Gap mmol/L BUN (7-17) mg/dL Creatinine (0.52-1.04) mg/dL Est GFR (CKD-EPI)AfAm (>60 ml/min/1.73 sqM) Est GFR (CKD-EPI)NonAf (>60 ml/min/1.73 sqM) Glucose (74-99) mg/dL Plasma Lactic Acid Celio (0.7-2.0) mmol/L Calcium (8.4-10.2) mg/dL Total Bilirubin (0.2-1.3) mg/dL AST (14-36) U/L ALT (4-34) U/L Alkaline Phosphatase (38-126) U/L Troponin I (0.000-0.034) ng/mL Total Protein (6.3-8.2) g/dL Albumin (3.5-5.0) g/dL Amylase (30-110) U/L Lipase (23-300) U/L Urine Color Dark Yellow Urine Appearance Cloudy H (Clear) Urine pH 5.5 (5.0-8.0) Ur Specific [place] 1.024 (1.001-1.035) Urine Protein Trace H (Negative) Urine Glucose (UA) 3+ H (Negative) Urine Ketones 2+ H (Negative) Urine Blood Negative (Negative) Urine Nitrite Positive H (Negative) Urine Bilirubin 1+ H (Negative) Urine Urobilinogen 6.0 (<2.0) mg/dL Ur Leukocyte Esterase Negative (Negative) Urine RBC 2 (0-5) /hpf Urine WBC 3 (0-5) /hpf Ur Squamous Epith Cells 2 (0-4) /hpf Calcium Oxalate Crystal Many H (None) /hpf Urine Bacteria Many H (None) /hpf Urine Mucus Occasional H (None) /hpf 01/11/21 01/11/21 01/11/21 Range/Units 16:45 16:45 16:45 WBC (3.8-10.6) k/uL RBC (3.80-5.40) m/uL Hgb (11.4-16.0) gm/dL Hct (34.0-46.0) % MCV (80.0-100.0) fL MCH (25.0-35.0) pg MCHC (31.0-37.0) g/dL RDW (11.5-15.5) % Plt Count (150-450) k/uL MPV Neutrophils % % Lymphocytes % % Monocytes % % Eosinophils % % Basophils % % Neutrophils # (1.3-7.7) k/uL Lymphocytes # (1.0-4.8) k/uL Monocytes # (0-1.0) k/uL Eosinophils # (0-0.7) k/uL Basophils # (0-0.2) k/uL PT (9.0-12.0) sec INR (<1.2) APTT (22.0-30.0) sec Sodium 138 (137-145) mmol/L Potassium 4.1 (3.5-5.1) mmol/L Chloride 102 (98-107) mmol/L Carbon Dioxide 23 (22-30) mmol/L Anion Gap 13 mmol/L BUN 16 (7-17) mg/dL Creatinine 0.62 (0.52-1.04) mg/dL Est GFR (CKD-EPI)AfAm >90 (>60 ml/min/1.73 sqM) Est GFR (CKD-EPI)NonAf >90 (>60 ml/min/1.73 sqM) Glucose 272 H (74-99) mg/dL Plasma Lactic Acid Celio 3.0 H* (0.7-2.0) mmol/L Calcium 9.8 (8.4-10.2) mg/dL Total Bilirubin 3.2 H (0.2-1.3) mg/dL AST 315 H (14-36) U/L ALT 162 H (4-34) U/L Alkaline Phosphatase 221 H (38-126) U/L Troponin I <0.012 (0.000-0.034) ng/mL Total Protein 7.7 (6.3-8.2) g/dL Albumin 4.4 (3.5-5.0) g/dL Amylase 49 (30-110) U/L Lipase 87 (23-300) U/L Urine Color Urine Appearance (Clear) Urine pH (5.0-8.0) Ur Specific [place] (1.001-1.035) Urine Protein (Negative) Urine Glucose (UA) (Negative) Urine Ketones (Negative) Urine Blood (Negative) Urine Nitrite (Negative) Urine Bilirubin (Negative) Urine Urobilinogen (<2.0) mg/dL Ur Leukocyte Esterase (Negative) Urine RBC (0-5) /hpf Urine WBC (0-5) /hpf Ur Squamous Epith Cells (0-4) /hpf Calcium Oxalate Crystal (None) /hpf Urine Bacteria (None) /hpf Urine Mucus (None) /hpf - EKG Data -: EKG Interpreted by Me EKG Comments: 12-lead Electrocardiogram Interpretation Note EKG was reviewed and interpreted by myself. 12-lead ECG performed at 1914 is interpreted by me as revealing sinus tachycardia at a rate of 118 beats per minute. [place] is normal. HI interval is 156 ms, QRS duration is 70 ms, QTc is 454 ms.. There were no ST or T wave abnormalities to suggest myocardial ischemia or injury. R wave progression across the precordium was satisfactory. By my interpretation this EKG is non-diagnostic for acute ischemia. Critical Care Time Critical Care Time: Yes Total Critical Care Time: 30 Critical Care Time: Upon my evaluation, this patient had a high probability of imminent or life- threatening deterioration due to acute cholecystitis, acute choledocholithiasis, which required my direct attention, intervention, and personal management. I have personally provided 30 minutes of critical care time exclusive of time spent on separately billable procedures. Time includes review of laboratory data, radiology results, discussion with consultants, and monitoring for potential decompensation. Interventions were performed as documented in my note. Disposition Clinical Impression: Dehydration, Nausea and vomiting, Acute cholecystitis, Lactic acidosis, Choledocholithiasis Disposition: OTHER INSTITUTION NOT DEFINED Condition: Serious Referrals: Rory Madrid DO [Primary Care Provider] - 1-2 days - Out of Hospital Transfer - Req. Specs Out of Hospital Transfer - Requested Specifics: Other Emergency Center (Transferred to [facility] for escalation of care. Requires GI coverage in addition to Surgery.)
[2021-01-11 17:09] LABS: Ketones,Urine 2+ (Negative)
[2021-01-11 17:12] LABS: ALT 162 U/L (4-34); AST 315 U/L (14-36); African American GFR (CKD) >90 (>60 ml/min/1.73 sqM); Albumin 4.4 g/dL (3.5-5.0); Alkaline Phosphatase 221 U/L (38-126); Amylase 49 U/L (30-110); Anion Gap 13 mmol/L; Blood Urea Nitrogen 16 mg/dL (7-17); Calcium 9.8 mg/dL (8.4-10.2); Carbon Dioxide 23 mmol/L (22-30); Chloride 102 mmol/L (98-107); Glucose 272 mg/dL (74-99); Lipase 87 U/L (23-300); Non-African American GFR(CKD) >90 (>60 ml/min/1.73 sqM); Potassium 4.1 mmol/L (3.5-5.1); Sodium 138 mmol/L (137-145); Total Bilirubin 3.2 mg/dL (0.2-1.3); Total Protein 7.7 g/dL (6.3-8.2)
[2021-01-11 17:13] LABS: Partial Thromboplastin Time 20.9 sec (22.0-30.0); Prothrombin Time 10.7 sec (9.0-12.0)
--- NOTE | 2021-01-11 17:34 | XR ---
EXAMINATION TYPE: XR chest 2V DATE OF EXAM: 01/11/2021 COMPARISON: 12/17/2019 HISTORY: Abdominal pain TECHNIQUE: 2 view FINDINGS: There is no heart failure nor confluent pneumonic infiltrate. Costophrenic angles are clear . There are no hilar masses. Bony thorax is intact. IMPRESSION: No active cardiopulmonary disease. No change.
--- NOTE | 2021-01-11 17:41 | CT ---
EXAMINATION TYPE: CT abdomen pelvis w con DATE OF EXAM: 01/11/2021 COMPARISON: 05/10/2017 HISTORY: abd pain CT DLP: 809.1 mGycm Automated exposure control for dose reduction was used. CONTRAST: Performed with IV Contrast, patient injected with 100 mL of Isovue 300. Images obtained from the diaphragm to the floor the pelvis with IV contrast. There is some mild interstitial density at the lung bases. Heart size is normal. There is no pericard ial effusion. There is no pleural effusion. There are multiple gallstones. Gallbladder is measuring 3.5 cm in diameter. There is minimal gallblad cheo wall thickening. Spleen is intact. Stomach is intact. There is no pancreatic mass. There is some mild dilation of the biliary tree. The common bile duct measures 11 mm. There is no adrenal mass. Kidneys show satisfactory contrast opacification. There is no hydronephrosi s. Ureters are not dilated. There is no retroperitoneal adenopathy. Bladder distends smoothly. There is no inguinal hernia. There is no free fluid in the pelvis. There is no mesenteric edema. There is no ascites or free air. There is no bowel obstruction. Appendi x is posterior and appears normal. The lumbar vertebra have normal alignment. Posterior elements are intact. There is no compression fra cture. Bony pelvis is intact. The hip joints are intact. Delayed images show normal renal excretion. IMPRESSION: Large gallbladder with gallstones. Mildly dilated biliary tree. Mild gallbladder wall thickening. Carlos iary abnormalities appear new compared to old exam. Ultrasound might be helpful for further evaluatio n. Common duct stone is possible.
[2021-01-11] MEDS ORDERED: metroNIDAZOLE-NS PMX 500 MG in SALINE 1 100ML.BAG IVPB SCH (18:15)
[2021-01-11] MEDS ORDERED: CEFEPIME 2 GM in SODIUM CHLORIDE 0.9% 100 ML IVPB SCH (18:15)
[2021-01-11] MEDS ORDERED: CEFEPIME 2 GM in SODIUM CHLORIDE 0.9% 100 ML IVPB STA (18:21)
[2021-01-11] MEDS ORDERED: metroNIDAZOLE-NS PMX 500 MG in SALINE 1 100ML.BAG IVPB STA (18:21)
--- NOTE | 2021-01-11 18:22 | US ---
EXAMINATION TYPE: US gallbladder DATE OF EXAM: 01/11/2021 COMPARISON: CT CLINICAL HISTORY: epigastric, RUQ abdominal pain. EXAM MEASUREMENTS: Liver Length: 15.5 cm Gallbladder Wall: 0.4 cm CBD: 1.0 cm Right Kidney: 11.0 x 4.3 x 4.9 cm Pancreas: visualized portions wnl, partially obscured by overlying midline bowel gas Liver: dilated intrahepatic ducts Gallbladder: multiple stones seen, wall thickening Evidence for sonographic North's sign: yes CBD: dilated Right Kidney: wnl IMPRESSION: Numerous gallstones. Mild gallbladder wall thickening suggestive of cholecystitis. Dilated biliary tree. Distal common bile duct not well seen.
[2021-01-11 18:42] VITALS: BP 160/87; PULSE 120; RESP 16
== END 2021-01-11 19:29 | disposition other institution (70) ==
LOC: EC 14:47
DX: K80.00 Calculus of gallbladder with acute cholecystitis without obstruction (principal); E87.2 Acidosis; E86.0 Dehydration; E11.9 Type 2 diabetes mellitus without complications; E78.5 Hyperlipidemia, unspecified; K21.9 Gastro-esophageal reflux disease without esophagitis; Z79.82 Long term (current) use of aspirin; Z79.899 Other long term (current) drug therapy; Z87.891 Personal history of nicotine dependence; Z88.0 Allergy status to penicillin
CPT/HCPCS: 36415; 93005; 80053; 82150; 83605; 83690; 84484; 85025; 85610; 85730; 81001; 87040; 87077; 87186; 71046; 76705; 74177; 99291; 96365; 96366; 96375 ×4; 96361; J2270; J1200; J2405; J0692; Q9967

== ENCOUNTER → 2021-10-09 | Outpatient (CLI) | payer BC, OTHER ==
[2021-10-09 14:43] LABS: HCT 44.8 % (37.2-46.3); HGB 14.5 g/dL (12.0-15.0); MCH 29.2 pg (27.0-32.0); MCHC 32.4 g/dL (32.0-37.0); MCV 90.3 fL (80.0-97.0); Mean Platelet Volume 11.5 fL (9.5-12.2); NRBC Per 100 WBC 0 /100 WBCS (0.0-0.0); Platelet Count 269 X 10*3/uL (140-440); RBC 4.96 X 10*6/uL (4.10-5.20); WBC 11.75 X 10*3/uL (4.50-10.00)
[2021-10-09 14:49] LABS: African American GFR (CKD) 91.5 (60.0-200.0); Anion Gap 9.7 mmol/L (10.00-18.00); Carbon Dioxide 24.6 mmol/L (20.0-27.5); Potassium 4.5 mmol/L (3.5-5.5)
== END | disposition home or self-care (01) ==
LOC: LABWHC1 08:46
PROVIDERS: ATTEND Internal Medicine Cardiovascular Disease
DX: R07.2 Precordial pain (principal)
CPT/HCPCS: 36415; 80051; 82565; 84520; 85027

== ENCOUNTER 2021-10-10 05:54 | Day surgery (SDC) | payer BC, OTHER ==
[2021-10-10] MEDS ORDERED: ATORVASTATIN 80 MG TAB PO STA (05:56)
[2021-10-10] MEDS ORDERED: ALPRAZolam 0.5 MG TAB PO PRN (05:56)
[2021-10-10] MEDS ORDERED: ALPRAZolam 0.25 MG TAB PO PRN (05:56)
[2021-10-10] MEDS ORDERED: ASPIRIN 325 MG TAB PO STA (05:56)
[2021-10-10] MEDS ORDERED: SODIUM CHLORIDE 0.9% 1,000 ML in EMPTY BAG 1 BAG IV SCH (05:56)
[2021-10-10] MEDS ORDERED: NITROGLYCERIN SL TABS 0.4 MG TAB SUBLINGUAL PRN (05:56)
[2021-10-10 06:22] VITALS: RESP 18; TEMP 97.7
[2021-10-10 06:23] LABS: Glucose,Whole Blood 186 mg/dL (70-110)
[2021-10-10 06:33] LABS: Basophils # (A) 0.1 k/uL (0-0.2); Basophils % (A) 1 %; Eosinophils # (A) 0.2 k/uL (0-0.7); Eosinophils % (A) 2 %; HCT 43.4 % (34.0-46.0); HGB 14.8 gm/dL (11.4-16.0); Lymphocytes # (A) 2.8 k/uL (1.0-4.8); Lymphocytes % (A) 35 %; MCH 30.3 pg (25.0-35.0); MCV 89.1 fL (80.0-100.0); Monocytes # (A) 0.4 k/uL (0-1.0); Monocytes % (A) 5 %; Neutrophils # (A) 4.5 k/uL (1.3-7.7); Neutrophils % (A) 56 %; Platelet Count 255 k/uL (150-450); RBC 4.87 m/uL (3.80-5.40); RDW 12.2 % (11.5-15.5); WBC 8.1 k/uL (3.8-10.6)
[2021-10-10 06:41] LABS: African American GFR (CKD) >90 (>60 ml/min/1.73 sqM); Anion Gap 6 mmol/L; Blood Urea Nitrogen 12 mg/dL (7-17); Calcium 9.3 mg/dL (8.4-10.2); Carbon Dioxide 28 mmol/L (22-30); Chloride 103 mmol/L (98-107); Glucose 192 mg/dL (74-99); Non-African American GFR(CKD) >90 (>60 ml/min/1.73 sqM); Sodium 137 mmol/L (137-145)
[2021-10-10] MEDS ORDERED: HEPARIN SODIUM,PORCINE 10,000 UNIT in SODIUM CHLORIDE 0.9% 1,000 ML IRRIGATION PRN (07:00)
[2021-10-10] MEDS ORDERED: HEPARIN SODIUM,PORCINE 2,500 UNIT in SODIUM CHLORIDE 0.9% 250 ML IRRIGATION PRN (07:00)
[2021-10-10] MEDS ORDERED: VERAPAMIL 2.5 MG/ML 2 ML AMP ONE (07:10)
[2021-10-10] MEDS ORDERED: fentaNYL (PF) 50 MCG/ML 2 ML AMP ONE (07:13)
[2021-10-10] MEDS ORDERED: HEPARIN SODIUM 1,000 UN/ML (10ML VL) ONE (07:13)
[2021-10-10] MEDS ORDERED: fentaNYL (PF) 50 MCG/ML 2 ML AMP IV ONE (07:26)
[2021-10-10] MEDS: MIDAZOLAM 2 MG/2 ML VIAL IV ONE ×2 (07:26→08:15)
[2021-10-10] MEDS ORDERED: LIDOCAINE 1% INJ 10MG/ML (5 ML VIAL-PF) SQ ONE (07:31)
[2021-10-10] MEDS ORDERED: VERAPAMIL SYRINGE (5 MG/10 ML) INTRAARTER ONE (07:31)
[2021-10-10] MEDS: HEPARIN SODIUM 1,000 UN/ML (10ML VL) IV ONE ×2 (07:34→08:15)
[2021-10-10] MEDS ORDERED: ADENOSINE 90 MG in SODIUM CHLORIDE 0.9% 60 ML IVP ONE (08:30)
[2021-10-10] MEDS ORDERED: IOPAMIDOL-370 125ML BTL INJ ONE (08:31)
[2021-10-10] MEDS ORDERED: RX INFO: IV CONTRAST WAS GIVEN 1 EACH MISC MISCELLANE PRN (08:35)
--- NOTE | 2021-10-10 08:41 | P.PCN ---
Date of Procedure: 10/10/21 Operative Findings: Fractional flow reserve (FFR) of the left circumflex Performing physician Simon Poole M.D. Procedure performed #1 FFR of the left circumflex coronary artery Indication This is a 61-year-old female patient who sees Dr. Cummins regularly with a past medical history significant for hypertension and dyslipidemia and significant family history of CAD was experiencing symptoms of chest discomfort and she underwent an exercise treadmill stress test and that came in to be ischemic and in the light of that a heart catheterization was advised. She underwent a heart catheterization by Dr. Cummins and that revealed intermediate lesion involving the left circumflex and LAD. FFR was advised Approach Right radial artery Complication None Level of sedation Moderate with a sedation length of 30 minutes Procedure description Please refer to the diagnostic heart catheterization was performed by Dr. Araiza earlier today. Anticoagulation was initiated using heparin with continuous ACT monitoring throughout the case. Subsequently and after zeroing the Doppler wire and equalizing between the Doppler wire and the guiding catheter we did an FFR with IV adenosine infusion and FFR came in to be a 0.89 which is non-flow limiting/nonischemic. At that point maximize medical treatment was advised and no need for percutaneous coronary intervention Conclusion Fractional flow reserve FFR of the left circumflex was performed and came in to be nonischemic 0.89 Postprocedure management Aggressive cholesterol control Risk factors modifications Follow-up with Dr. Cummins
[2021-10-10] MEDS ORDERED: SODIUM CHLORIDE 0.9% 1,000 ML IV SCH (08:45)
[2021-10-10] MEDS ORDERED: SODIUM CHLORIDE 0.9% 500 ML 500 ML IV ONE (11:45)
[2021-10-10 13:06] VITALS: BP 132/74; PULSE 72
--- NOTE | 2021-10-10 18:47 | CC ---
CARDIAC CATHETERIZATION REPORT INDICATION: Chest pain with abnormal stress test. This is a 61-year-old lady with multiple coronary risk factors, including diabetes, dyslipidemia and strong family history of premature coronary artery disease, who underwent a stress test because of exertional chest pain and pressure. She developed chest pain on treadmill after walking for 7 minutes and EKG changes that lasted for more than 10 minutes into recovery. Due to her symptomatology, risk factors and the abnormal stress, we advised her to undergo cardiac catheterization for further evaluation. She had been explained risks, benefits and alternatives, understood and accepted. PROCEDURE NOTE: After obtaining informed consent, left heart catheterization and coronary angiogram were performed via the right radial artery using standard Mariann catheters. Left ventricular hemodynamics were obtained using the right Mariann catheter. Patient tolerated the procedure well without any obvious immediate complications. She received moderate conscious sedation. Total sedation time was 18 minutes. Using a micropuncture needle with modified Seldinger technique, right radial artery access was obtained and a [place] wire was used to manipulate the catheter into the ascending aorta, where the catheters were exchanged with a long exchange length wire. Patient received 5 mg of verapamil and 3500 units of heparin as per protocol. FINDINGS: HEMODYNAMICS: Left ventricular end-diastolic pressure is 4 to 6 mm. There is no significant gradient across the aortic valve. LEFT VENTRICULOGRAM: Left ventriculogram was not performed. ANGIOGRAPHIC DATA: Right coronary artery is a small nondominant vessel and is free of significant stenosis. Left main coronary artery is a normal-sized vessel and is free of significant disease. It divides into left anterior descending coronary artery and circumflex coronary artery. LAD and its branches show mild atherosclerotic plaque but no focal significant lesions. Circumflex coronary artery, which is a large dominant vessel, shows a focal area of 50% stenosis as it bifurcates into circ and the large OM branch. There is also a proximal area of atherosclerotic plaque. 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 PLAN: I am going to review the angiographic data with Dr. Poole, the on-call service manager, and decide on whether to treat her with medical therapy or perform an IFR and see if the lesion is hemodynamically significant; and if it is, proceed with angioplasty. I discussed these issues at length with the patient. She understands and is in agreement with the plans. MMODL / IJN: [id number] /
--- NOTE | 2021-10-10 18:47 | LTR ---
October 10, 2021 To: Dr. Madrid Re: Paulette Myrick (60) Dear Rory, I performed cardiac catheterization on Paulette Myrick. A detailed catheterization report is enclosed for your records. In brief, the cardiac catheterization revealed focal stenotic lesion within the circumflex coronary artery which is a borderline lesion, and we will decide on performing hemodynamics studies to assess the significance of this lesion and decide on angioplasty or medical therapy. Thank you for giving me the privilege of participating in the care of this pleasant lady. Sincerely, Raúl Cummins M.D. KENDRA / JAYSON: [id number] /
== END 2021-10-10 13:38 | disposition home or self-care (01) ==
LOC: CATHCVL 05:54
PROVIDERS: ATTEND Internal Medicine Cardiovascular Disease
DX: I25.10 Atherosclerotic heart disease of native coronary artery without angina pectoris (principal); I10 Essential (primary) hypertension; E78.2 Mixed hyperlipidemia; E11.9 Type 2 diabetes mellitus without complications; Z88.0 Allergy status to penicillin; Z90.710 Acquired absence of both cervix and uterus; Z90.49 Acquired absence of other specified parts of digestive tract; Z82.49 Family history of ischemic heart disease and other diseases of the circulatory system; Z87.891 Personal history of nicotine dependence; Z79.899 Other long term (current) drug therapy; Z79.82 Long term (current) use of aspirin
CPT/HCPCS: 93571; 93458; 80048; 85025; C1769 ×2; C1887; C1894; J2250; J2001; J3010; J1644; J0153; Q9967